=== PATIENT | male | born 1940 | race Caucasian/White ===

== ENCOUNTER → 2019-02-07 | Outpatient (CLI) | payer OTHER ==
[~2019-02-07] MED LIST: ASPI325 PO; Norco 5-325 Ta1 EACH PO
[2019-02-07 17:29] LABS: BASOPHILS ABSOLUTE AUTO 0.04 K/mm3 (0.00-0.23); BASOPHILS PERCENT AUTO 1 % (0-2); EOSINOPHILS ABSOLUTE AUTO 0.28 K/mm3 (0.00-0.68); EOSINOPHILS PERCENT AUTO 5 % (0-6); Hematocrit 49.9 % (37.0-53.0); Hemoglobin 17.2 g/dL (13.5-17.5); IMMATURE GRAN ABSOLUTE AUTO 0.01 K/mm3 (0.00-0.10); IMMATURE GRAN PERCENT AUTO 0 % (0-1); LYMPHOCYTES ABSOLUTE AUTO 2.33 K/mm3 (0.84-5.20); LYMPHOCYTES PERCENT AUTO 38 % (21-46); MONOCYTES ABSOLUTE AUTO 0.53 K/mm3 (0.16-1.47); MONOCYTES PERCENT AUTO 9 % (4-13); Mean Corpuscular HGB 32.7 pg (26.0-34.0); Mean Corpuscular HGB Conc 34.5 g/dL (31.5-36.5); Mean Corpuscular Volume 95 fL (80-100); Mean Platelet Volume 9.9 fL (9.1-12.4); NEUTROPHILS ABSOLUTE AUTO 2.97 K/mm3 (1.96-9.15); NEUTROPHILS PERCENT AUTO 48 % (41-73); Platelet Count 203 K/mm3 (150-400); RDW Coefficient Variation 12.9 % (11.7-14.2); RDW Standard Deviation 45.1 fL (35.1-46.3); Red Blood Cell Count 5.26 M/mm3 (4.30-5.90); White Blood Cell Count 6.16 K/mm3 (4.00-11.30)
[2019-02-07 17:43] LABS: Alanine Aminotransfer (ALT/SGP 23 U/L (12-78); Albumin, Blood 3.8 g/dL (3.4-5.0); Albumin/Globulin Ratio 1.1 (0.8-1.8); Alk Phos 77 U/L (50-136); Anion Gap 4 mmol/L (6-16); Aspartate Aminotrans (AST/SGOT 17 U/L (12-37); Bilirubin, Total 1.1 mg/dL (0.1-1.0); Blood Urea Nitrogen 15 mg/dL (8-24); Bun/Creatinine Ratio 13.3 (12.0-20.0); CHOL/HDL RATIO 3.7; CO2, Blood 29 mmol/L (21-32); Calcium, Blood 8.8 mg/dL (8.5-10.1); Chloride, Blood 108 mmol/L (98-108); Cholesterol 179 mg/dL (50-200); Creatinine, Blood 1.13 mg/dL (0.60-1.20); Globulin, Blood 3.6 g/dL (2.2-4.0); Glomerular Filtration Rate >60 (60-); Glucose, Blood 91 mg/dL (70-99); HDL Cholesterol 48 mg/dL (>39); LDL/HDL RATIO 2.2; Low Density Lipoprotein Chol 106 mg/dL (0-110); Potassium, Blood 4.3 mmol/L (3.5-5.5); Sodium, Blood 141 mmol/L (136-145); Total Protein, Blood 7.4 g/dL (6.4-8.2); Triglycerides 127 mg/dL (30-160); Very Low Density Lipoprot Chol 25 mg/dL (6-32)
== END | disposition home or self-care (01) ==
LOC: LAB 14:40 → LAB SHORT 14:40
PROVIDERS: Nurse Practitioner Family
DX: R73.03 Prediabetes (principal); I10 Essential (primary) hypertension; E78.2 Mixed hyperlipidemia
CPT/HCPCS: 80053; 80061; 83036; 85025

== ENCOUNTER → 2019-12-22 | Outpatient (CLI) | payer OTHER ==
[2019-12-22 17:40] LABS: BASOPHILS ABSOLUTE AUTO 0.05 K/mm3 (0.00-0.23); BASOPHILS PERCENT AUTO 1 % (0-2); EOSINOPHILS ABSOLUTE AUTO 0.17 K/mm3 (0.00-0.68); EOSINOPHILS PERCENT AUTO 3 % (0-6); Hematocrit 50.9 % (37.0-53.0); Hemoglobin 17.1 g/dL (13.5-17.5); IMMATURE GRAN ABSOLUTE AUTO 0.01 K/mm3 (0.00-0.10); IMMATURE GRAN PERCENT AUTO 0 % (0-1); LYMPHOCYTES ABSOLUTE AUTO 1.74 K/mm3 (0.84-5.20); LYMPHOCYTES PERCENT AUTO 28 % (21-46); MONOCYTES ABSOLUTE AUTO 0.62 K/mm3 (0.16-1.47); MONOCYTES PERCENT AUTO 10 % (4-13); Mean Corpuscular HGB 31.8 pg (26.0-34.0); Mean Corpuscular HGB Conc 33.6 g/dL (31.5-36.5); Mean Corpuscular Volume 95 fL (80-100); Mean Platelet Volume 9.7 fL (9.1-12.4); NEUTROPHILS ABSOLUTE AUTO 3.69 K/mm3 (1.96-9.15); NEUTROPHILS PERCENT AUTO 59 % (41-73); Platelet Count 170 K/mm3 (150-400); RDW Coefficient Variation 12.6 % (11.7-14.2); RDW Standard Deviation 43.4 fL (35.1-46.3); Red Blood Cell Count 5.38 M/mm3 (4.30-5.90); White Blood Cell Count 6.28 K/mm3 (4.00-11.30)
[2019-12-22 20:43] LABS: Alanine Aminotransfer (ALT/SGP 26 U/L (12-78); Albumin, Blood 3.4 g/dL (3.4-5.0); Albumin/Globulin Ratio 0.9 (0.8-1.8); Alk Phos 80 U/L (50-136); Anion Gap 7 mmol/L (6-16); Aspartate Aminotrans (AST/SGOT 21 U/L (12-37); Bilirubin, Total 1.7 mg/dL (0.1-1.0); Blood Urea Nitrogen 11 mg/dL (8-24); Bun/Creatinine Ratio 10.1 (12.0-20.0); CHOL/HDL RATIO 4.2; CO2, Blood 27 mmol/L (21-32); Calcium, Blood 8.9 mg/dL (8.5-10.1); Chloride, Blood 106 mmol/L (98-108); Cholesterol 171 mg/dL (50-200); Creatinine, Blood 1.09 mg/dL (0.60-1.20); Globulin, Blood 3.8 g/dL (2.2-4.0); Glomerular Filtration Rate >60 (60-); Glucose, Blood 125 mg/dL (70-99); HDL Cholesterol 41 mg/dL (>39); LDL/HDL RATIO 2.7; Low Density Lipoprotein Chol 112 mg/dL (0-110); Sodium, Blood 140 mmol/L (136-145); Total Protein, Blood 7.2 g/dL (6.4-8.2); Triglycerides 91 mg/dL (30-160); Very Low Density Lipoprot Chol 18 mg/dL (6-32)
== END | disposition home or self-care (01) ==
LOC: LAB SHORT 16:15 → LAB 16:15
PROVIDERS: Nurse Practitioner Family
DX: Z11.59 Encounter for screening for other viral diseases (principal); E78.5 Hyperlipidemia, unspecified
CPT/HCPCS: 80053; 80061; 85025; 86803

== ENCOUNTER → 2021-01-24 | Outpatient (CLI) | payer OTHER ==
[2021-01-24 18:21] LABS: BASOPHILS ABSOLUTE AUTO 0.06 K/mm3 (0.00-0.23); BASOPHILS PERCENT AUTO 1 % (0-2); EOSINOPHILS ABSOLUTE AUTO 0.25 K/mm3 (0.00-0.68); EOSINOPHILS PERCENT AUTO 4 % (0-6); Hematocrit 49.8 % (37.0-53.0); Hemoglobin 17.1 g/dL (13.5-17.5); IMMATURE GRAN ABSOLUTE AUTO 0.01 K/mm3 (0.00-0.10); IMMATURE GRAN PERCENT AUTO 0 % (0-1); LYMPHOCYTES ABSOLUTE AUTO 2.74 K/mm3 (0.84-5.20); LYMPHOCYTES PERCENT AUTO 39 % (21-46); MONOCYTES ABSOLUTE AUTO 0.64 K/mm3 (0.16-1.47); MONOCYTES PERCENT AUTO 9 % (4-13); Mean Corpuscular HGB 32.8 pg (26.0-34.0); Mean Corpuscular HGB Conc 34.3 g/dL (31.5-36.5); Mean Corpuscular Volume 95 fL (80-100); Mean Platelet Volume 9.7 fL (9.1-12.4); NEUTROPHILS ABSOLUTE AUTO 3.38 K/mm3 (1.96-9.15); NEUTROPHILS PERCENT AUTO 48 % (41-73); Platelet Count 178 K/mm3 (150-400); RDW Coefficient Variation 12.4 % (11.7-14.2); RDW Standard Deviation 43.8 fL (35.1-46.3); Red Blood Cell Count 5.22 M/mm3 (4.30-5.90); White Blood Cell Count 7.08 K/mm3 (4.00-11.30)
[2021-01-24 22:05] LABS: Alanine Aminotransfer (ALT/SGP 24 U/L (12-78); Albumin, Blood 3.7 g/dL (3.4-5.0); Albumin/Globulin Ratio 1.1 (0.8-1.8); Alk Phos 74 U/L (50-136); Anion Gap 6 mmol/L (6-16); Aspartate Aminotrans (AST/SGOT 14 U/L (12-37); Bilirubin, Total 1.6 mg/dL (0.1-1.0); Blood Urea Nitrogen 9 mg/dL (8-24); Bun/Creatinine Ratio 8.4 (12.0-20.0); CO2, Blood 28 mmol/L (21-32); Calcium, Blood 8.7 mg/dL (8.5-10.1); Chloride, Blood 106 mmol/L (98-108); Cholesterol 171 mg/dL (50-200); Creatinine, Blood 1.07 mg/dL (0.60-1.20); Globulin, Blood 3.5 g/dL (2.2-4.0); Glomerular Filtration Rate >60 (60-); Glucose, Blood 92 mg/dL (70-99); HDL Cholesterol 43 mg/dL (>39); LDL/HDL RATIO 2.6; Low Density Lipoprotein Chol 112 mg/dL (0-110); Potassium, Blood 3.9 mmol/L (3.5-5.5); Prostate Specific Antigen 0.374 ng/mL (0.000-4.000); Sodium, Blood 140 mmol/L (136-145); Total Protein, Blood 7.2 g/dL (6.4-8.2); Triglycerides 80 mg/dL (30-160); Very Low Density Lipoprot Chol 16 mg/dL (6-32)
== END | disposition home or self-care (01) ==
LOC: LAB 16:29 → LAB SHORT 16:29
PROVIDERS: Nurse Practitioner Family
DX: Z00.00 Encounter for general adult medical examination without abnormal findings (principal); Z12.5 Encounter for screening for malignant neoplasm of prostate; E78.5 Hyperlipidemia, unspecified; I10 Essential (primary) hypertension; E55.9 Vitamin D deficiency, unspecified
CPT/HCPCS: 80053; 80061; 82306; 84443; 85025; G0103

== ENCOUNTER 2022-11-10 03:51 | Inpatient (IN) | payer OTHER ==
[~2022-11-10] VITALS: Ht 172.7 cm; Wt 90.8 kg
[2022-11-10 04:07] LABS: BASOPHILS ABSOLUTE AUTO 0.04 K/mm3 (0.00-0.23); BASOPHILS PERCENT AUTO 0 % (0-2); EOSINOPHILS PERCENT AUTO 0 % (0-6); Hematocrit 49.7 % (37.0-53.0); Hemoglobin 17.5 g/dL (13.5-17.5); IMMATURE GRAN ABSOLUTE AUTO 0.05 K/mm3 (0.00-0.10); IMMATURE GRAN PERCENT AUTO 0 % (0-1); LYMPHOCYTES PERCENT AUTO 10 % (21-46); MONOCYTES ABSOLUTE AUTO 0.92 K/mm3 (0.16-1.47); MONOCYTES PERCENT AUTO 8 % (4-13); Mean Corpuscular HGB Conc 35.2 g/dL (31.5-36.5); Mean Corpuscular Volume 94 fL (80-100); Mean Platelet Volume 9.5 fL (9.1-12.4); NEUTROPHILS ABSOLUTE AUTO 9.46 K/mm3 (1.96-9.15); NEUTROPHILS PERCENT AUTO 81 % (41-73); Platelet Count 179 K/mm3 (150-400); RDW Coefficient Variation 12.8 % (11.7-14.2); RDW Standard Deviation 43.9 fL (35.1-46.3); Red Blood Cell Count 5.31 M/mm3 (4.30-5.90); White Blood Cell Count 11.67 K/mm3 (4.00-11.30)
[2022-11-10 04:18] LABS: Source, Urine Foley catheter
[2022-11-10 04:23] LABS: Bilirubin, Urine Neg (Neg); Blood, Urine 2+ (Neg); Glucose Qualitative, Urine Neg (Neg); Ketones, Urine Neg (Neg); Leukocyte Esterase, Urine Neg (Neg); Nitrite, Urine Neg (Neg); Protein, Urine 2+ (Neg); Specific Gravity, Urine 1.015 (1.003-1.022); Urobilinogen, Urine 2+ (Normal)
[2022-11-10 04:28] LABS: Alanine Aminotransfer (ALT/SGP 22 U/L (12-78); Albumin, Blood 3.8 g/dL (3.4-5.0); Alk Phos 77 U/L (50-136); Anion Gap 3 mmol/L (6-16); Aspartate Aminotrans (AST/SGOT 26 U/L (12-37); Blood Urea Nitrogen 18 mg/dL (8-24); Bun/Creatinine Ratio 15.5 (12.0-20.0); CO2, Blood 25 mmol/L (21-32); CPK Creatine Kinase 311 U/L (39-308); Calcium, Blood 9.2 mg/dL (8.5-10.1); Chloride, Blood 107 mmol/L (98-108); Creatinine, Blood 1.16 mg/dL (0.60-1.20); Globulin, Blood 3.7 g/dL (2.2-4.0); Glomerular Filtration Rate 63 (60-); Glucose, Blood 117 mg/dL (70-99); Potassium, Blood 4.1 mmol/L (3.5-5.5); Sodium, Blood 135 mmol/L (136-145); Total Protein, Blood 7.5 g/dL (6.4-8.2)
[2022-11-10 04:40] LABS: Appearance, Urine Clear (Clear); Color, Urine Yellow (P-Yellow)
[2022-11-10 04:42] LABS: Bacteria Few /hpf; Squamous Epithelial Cells Few /hpf (Few); White Blood Cells, Urine 0-2 /hpf (0-5)
[2022-11-10 05:01] LABS: Creatine Kinase MB 2.2 ng/mL (0.0-3.6); Creatine Kinase MB Index 0.7 (0.0-4.0); Ethanol (Alcohol), Blood, Med <3 mg/dL
[2022-11-10 05:33] LABS: U Amphetamine Screen Not Detected; U Barbituate Screen Not Detected; U Benzodiazapine Screen Not Detected; U Buprenorphine Screen Not Detected; U Cannabinoids Screen Not Detected; U Cocaine Screen Not Detected; U Methadone Screen Not Detected; U Methamphetamine Screen Not Detected; U Opiates Screen Not Detected; U Oxycodone Screen Not Detected; U Phencyclidine Screen Not Detected; U Propoxyphene Screen Not Detected
[2022-11-10 06:24] LABS: Base Excess Venous -1.7 mmol/L; Bicarbonate Venous 22.8 mmol/L (24.0-30.0); PCO2 Venous 43.6 mmHg (38-42); pH Blood Venous 7.35 (7.34-7.37)
[2022-11-10 08:56] VITALS: BP 162/103
--- NOTE | 2022-11-10 11:21 | NUR ---
NOTE: SPOKE WITH PROVIDER, DR. MOON, ABOUT PT'S BP. STATED HE WOULD REVIEW THE VITALS AND WOULD PUT IN ORDERS IF NECESSARY. WILL PASS ON TO TRANSFER NURSE.
--- NOTE | 2022-11-10 12:19 | NUR ---
TRANSFER NOTE: PT TRANSFERED TO MEDICAL FLOOR 345. REPORT GIVEN TO REKHA TRUJILLO.
[2022-11-10 15:54] VITALS: BP 157/100
--- NOTE | 2022-11-10 17:33 | NUR ---
PT MOSTLY ASLEEP TODAY SINCE TRANSFER FROM FLOOR. HE DID AWAKEN TO STERNAL RUB AND DID TALK FOR COUPLE MOMENTS TO ME. DID GIVE NAME, , AGE, PO BOX #, UNABLE TO TELL ME DATE, PRESIDENT, OR HIS PHYSICAL ADDRESS. PT HAS SING SONGY VOICE, APPEARS TO HEAR MY QUESTIONS AT NORMAL VOLUME. ANSWERS APPROP IF ANSWERS AT ALL. AGAIN, FALLS ASLEEP AGAIN. VSS, IVF RUNNING PER ORDERS. NPO. BED IN LOW POSITION, CALL LITE IN REACH, DENIES PAIN, BED ALARM ON FOR SAFETY, CAMERA FOR IMPULSIVITY
[2022-11-10 20:23] VITALS: BP 162/114
[2022-11-11 02:37] VITALS: BP 168/107
--- NOTE | 2022-11-11 04:06 | NUR ---
SHIFT UNREMARKABLE. PT SOMNOLENT AND HAS SLEPT THROUGH MOST OF SHIFT. EASILY AROUSABLE. AOX2-3 WHEN AWAKE BUT ONLY BRIEFLY STAYS AWAKE. DENIES ANY PAIN/DISCOMFORT OF ANY KIND. NS RUNNING THROUGHOUT SHIFT. LIND IN PLACE AND DRAINING WELL. ZOILA AREA WNL ON ASSESSMENT. BED ALARM IS ON AND PT HAS NOT BEEN IMPULSIVE THROUGHOUT SHIFT. Q6 CBGs HAVE BEEN WNL. PT PLEASANT AND COOPERATIVE WITH CARE. DOES NOT REMEMBER FALLING AT HOME OR WHAT LED TO HIM BEING ADMITTED BUT CAN TELL ME WHAT YEAR IT IS, WHERE HE LIVES, WHO HE IS. BED LOCKED IN LOWEST POSITION. CALL LIGHT LEFT WITHIN REACH.
[2022-11-11 05:28] LABS: BASOPHILS ABSOLUTE AUTO 0.03 K/mm3 (0.00-0.23); BASOPHILS PERCENT AUTO 0 % (0-2); EOSINOPHILS ABSOLUTE AUTO 0.02 K/mm3 (0.00-0.68); EOSINOPHILS PERCENT AUTO 0 % (0-6); Hematocrit 46.6 % (37.0-53.0); Hemoglobin 16.9 g/dL (13.5-17.5); IMMATURE GRAN ABSOLUTE AUTO 0.03 K/mm3 (0.00-0.10); IMMATURE GRAN PERCENT AUTO 0 % (0-1); LYMPHOCYTES ABSOLUTE AUTO 2.66 K/mm3 (0.84-5.20); LYMPHOCYTES PERCENT AUTO 30 % (21-46); MONOCYTES ABSOLUTE AUTO 1.06 K/mm3 (0.16-1.47); MONOCYTES PERCENT AUTO 12 % (4-13); Mean Corpuscular HGB 33.7 pg (26.0-34.0); Mean Corpuscular HGB Conc 36.3 g/dL (31.5-36.5); Mean Corpuscular Volume 93 fL (80-100); Mean Platelet Volume 9.7 fL (9.1-12.4); NEUTROPHILS ABSOLUTE AUTO 5.23 K/mm3 (1.96-9.15); NEUTROPHILS PERCENT AUTO 58 % (41-73); Platelet Count 153 K/mm3 (150-400); RDW Coefficient Variation 12.7 % (11.7-14.2); RDW Standard Deviation 43.1 fL (35.1-46.3); Red Blood Cell Count 5.01 M/mm3 (4.30-5.90); White Blood Cell Count 9.03 K/mm3 (4.00-11.30)
[2022-11-11 05:46] LABS: Albumin, Blood 3.2 g/dL (3.4-5.0); Albumin/Globulin Ratio 0.9 (0.8-1.8); Bilirubin, Total 3.7 mg/dL (0.1-1.0); Bun/Creatinine Ratio 13.2 (12.0-20.0); Calcium, Blood 8.4 mg/dL (8.5-10.1); Creatinine, Blood 0.91 mg/dL (0.60-1.20); Globulin, Blood 3.7 g/dL (2.2-4.0); Magnesium, Blood 1.9 mg/dL (1.6-2.4); Potassium, Blood 4.1 mmol/L (3.5-5.5); Total Protein, Blood 6.9 g/dL (6.4-8.2)
[2022-11-11 07:15] VITALS: BP 160/99
[2022-11-11 15:49] VITALS: BP 146/104
--- NOTE | 2022-11-11 18:00 | NUR ---
SHIFT SUMMARY PT DOZING MOST OF DAY BUT DOES ROUSE TO NAME. SON BILL IN TO SEE PT AND AGREED TO BE PTS NEXT OF KIN AND DECISION MAKER. ATTEMPTED A BEDSIDE SWALLOW EVAL WITH PT COUGHING AND THEN VOMITTED. REMAINS NPO AND MD NOTIFIED OF EPISODE. DRESSING APPLIED TO L HAND LACERATION AFTER STERI STRIPS APPLIED. FAMILY AT BEDSIDE ON AND OFF.
[2022-11-11 21:27] VITALS: BP 170/104
[2022-11-11 21:28] VITALS: BP 186/111
--- NOTE | 2022-11-11 21:55 | NUR ---
NIGHTTIME BLOOD PRESSURE CHECK WAS >180 SBP. ENTERED ORDER FOR TELEMETRY BOX PER PROTOCOL. NOTIFIED WEIGHT LOSS CONSULTANT AND ADMINISTERED PRN LABETALOL VIA IV. WILL CONTINUE TO MONITOR.
[2022-11-11 22:09] VITALS: BP 170/114
[2022-11-12 03:19] VITALS: BP 179/104
--- NOTE | 2022-11-12 03:46 | NUR ---
SHIFT UNREMARKABLE. PT HAS BEEN RESTING COMFORTABLY THROUGHOUT MOST OF SHIFT. NIGHT TIME VITALS SHOWED ELEVATED SBP >180. APPLIED TELEMETRY AN ADMINISTERED IV LABETALOL. SEE RELATED NOTE FOR DETAILS. SBP HAS REMAINED <180 SINCE. SHIFT OTHERWISE NOT NOTEWORTHY. PT REMAINS AOX1-2, DENIES PAIN, COOPERATIVE AND PLEASANT. BED LOCKED IN LOWEST POSITION. BED ALARM ON. CALL LIGHT WITHIN REACH.
[2022-11-12 07:20] VITALS: BP 189/106
[2022-11-12 09:18] VITALS: BP 152/104
[2022-11-12 12:59] VITALS: BP 143/106
[2022-11-12 15:28] VITALS: BP 132/96
--- NOTE | 2022-11-12 17:30 | NUR ---
PT IS A/OX2, PLEASANT AND COOPERATIVE. THE PT IS BED REST AT THIS TIME. PT REPOSITIONED T/O THE DAY. THE PT HAS BEEN CONTINENT. PTS AMS IMPROVED COMPARED TO YESTERDAY PER NURSING STAFF THAT WORKED WITH THE PT YESTERDAY. THE PT HAD EMISIS WITH LUNCH. ZOFRAN WAS GIVEN A CALL WAS MADE TO DR. MOON AND NEW ORDERS WERE GIVEN. THE PTS FAMILY REQUESTED TO BE UPDATED ON THE PTS CONDITION FROM THE DO. , DR. MOON CAME TO THE ROOM AND SPOKE WITH THE FAMILY. CALL LIGHT IN REACH. WILL CONTINUE TO MONITOR AND ASSESS FOR CHANGES
--- NOTE | 2022-11-12 17:45 | NUR ---
A&O x 2. ST eval this am started on Puree and thin liquids. During lunch he had an emesis x 1 with no further, zofran given for nausea. MD stopped meals and started Liquids only. Continues on IV fluids. Family in to visit at bedside results of MRI provided. Did not require Ativan for MRI. Luther continues to improve and conversing more this shift.
[2022-11-12 20:34] VITALS: BP 149/87
--- NOTE | 2022-11-13 03:01 | NUR ---
SHIFT MOSTLY UNREMARKABLE. PT HAS BEEN SLEEPING THROUGH MOST OF SHIFT. Q6 CBGS WNL. BP RUNNING LOWER THAN IT WAS LAST NIGHT, NO NEED FOR PRN LABETALOL. PT HAS BEEN MUCH MORE ORIENTED THAN LAST NIGHT. ABLE TO TELL ME HIS NAME/, WHERE HE IS, WHY HE IS HERE, AND THE MONTH. STILL DOES NOT REMEMBER HIS FALL AT HOME OR ANY EVENTS LEADING UP TO FALL. WAS PULLING AT IV EARLY IN MORNING BUT WAS EASILY REDIRECTED. NS CONTINUES TO RUN AT 50 MLS/HR. PT REMAINS INCONTINENT. CHANGED BRIEF 2X THUS FAR THIS SHIFT. PT HAS NOT REQUESTED ANY PO FLUIDS OR FOOD THUS FAR THIS SHIFT. BED LOCKED IN LOWEST POSITION. CALL LIGHT LEFT WITHIN REACH.
[2022-11-13 03:41] VITALS: BP 149/96
[2022-11-13 05:24] LABS: Hematocrit 44.1 % (37.0-53.0); Hemoglobin 16.1 g/dL (13.5-17.5); Mean Corpuscular HGB 33.5 pg (26.0-34.0); Mean Corpuscular HGB Conc 36.5 g/dL (31.5-36.5); Mean Corpuscular Volume 92 fL (80-100); Mean Platelet Volume 9.7 fL (9.1-12.4); Platelet Count 155 K/mm3 (150-400); RDW Coefficient Variation 12.5 % (11.7-14.2); RDW Standard Deviation 41.7 fL (35.1-46.3); White Blood Cell Count 8.77 K/mm3 (4.00-11.30)
[2022-11-13 05:47] LABS: Bun/Creatinine Ratio 19.4 (12.0-20.0); Calcium, Blood 8.5 mg/dL (8.5-10.1); Creatinine, Blood 0.88 mg/dL (0.60-1.20); Potassium, Blood 3.8 mmol/L (3.5-5.5)
[2022-11-13 07:09] VITALS: BP 138/92
[2022-11-13 12:03] LABS: Thyroid Stimulating Hormone 1.94 uIU/mL (0.360-4.800)
[2022-11-13 15:56] LABS: PCO2 Arterial 33.7 mmHg (35-45); PO2 Arterial 71.7 mmHg (80-100); pH Blood Arterial 7.43 (7.35-7.45)
[2022-11-13 16:13] VITALS: BP 122/83
--- NOTE | 2022-11-13 16:30 | NUR ---
SHIFT SUMMARY PATIENT IS ALERT BUT CONFUSED. PATIENT HAS BEEN CONFUSED THIS SHIFT. PATIENT HAS NOT HAD ANY ACUTE EVENTS THIS SHIFT. VITAL SIGNS REVIEWED. PATIENT HAS HAD ABG AND EEG DONE TODAY. PATIENT HAS BEEN CONTINENT THIS SHIFT. PATIENT HAS NOT COMPLAINED OF PAIN, NAUSEA, SOB OR VOMITTING THIS SHIFT. BED IN LOCKED AND LOWEST POSITION. CALL LIGHT IN PLACE. WILL MONITOR UNTIL SHIFT CHANGE.
--- NOTE | 2022-11-13 18:30 | NUR ---
NURSE NOTE LEFT HAND LACERATION APPEARS TO BE MORE SWOLLEN. PATIENT REPORTS TENDERNESS. WILL RELAY THIS TO NOC NURSE FOR POSSIBLE WOUND CARE CONSULT.
[2022-11-13 19:11] VITALS: BP 144/114
--- NOTE | 2022-11-13 21:50 | NUR ---
L Hand infection During assessment I noticed pt had a swollen red left hand. Pt states he cut it on a box 1 week ago. Called hospitalist Dr. Almonte who came and looked, he agreed with my assessment. Dr. Almonte ordered PO antibiotics, first doses tonight.
[2022-11-14 04:59] VITALS: BP 163/97
--- NOTE | 2022-11-14 05:18 | NUR ---
Shift Summary Pt started on PO antibiotics for a probable infection on his L hand per Dr. Almonte's order, see nursing not for more information. C/O pain in L hand and neck/back, medicated per emar. Pt AOx2-3, able to follow commands and make needs known. Slept well t/o most of the night. Incontinent/continent, changed PRN. NS running at 50 mL/hr. VSS, cooperative with care.
[2022-11-14 05:39] LABS: Albumin, Blood 2.8 g/dL (3.4-5.0); Albumin/Globulin Ratio 0.8 (0.8-1.8); Bilirubin, Total 2.5 mg/dL (0.1-1.0); Bun/Creatinine Ratio 18.4 (12.0-20.0); Calcium, Blood 8.5 mg/dL (8.5-10.1); Creatinine, Blood 0.93 mg/dL (0.60-1.20); Globulin, Blood 3.5 g/dL (2.2-4.0); Potassium, Blood 3.6 mmol/L (3.5-5.5); Total Protein, Blood 6.3 g/dL (6.4-8.2)
[2022-11-14 07:11] VITALS: BP 166/93
[2022-11-14 15:25] VITALS: BP 132/80
--- NOTE | 2022-11-14 17:42 | NUR ---
SHIFT SUMMARY: PT A&O X2-3. PT PLEASANT AND COOPERATIVE WITH ALL CARE. PT HAD FREQUENT URINATION THROUGHOUT ENTIRE SHIFT. PT WOULD CALL TO USE URINAL AND EITHER OF ALREADY GONE IN BRIEF OR WILL BARELY GO. PT SON CAME TO VISIT. SON STATED PT DID NOT RECOGNIZE HIM YESTERDAY AND DID TODAY. PT WORKED WITH SPEECH/OT/PT THIS SHIFT. PT UPGRADED TO MECHANICAL SOFT DIET AND MEDS WHOLE WITH WATER. PT ATTEMPTED TO GET OUT OF BED 3 TIMES THIS SHIFT BUT IS EASILY REDIRECTABLE. 4/10 PAIN IN NECK, HEAD, AND L.HAND. L.HAND REMAINS PUFFY. ABX GIVEN. CALL LIGHT IN REACH. BED IN LOWEST POSITION. WILL CONTINUE TO MONITOR.
[2022-11-14 19:46] VITALS: BP 138/93
[2022-11-15 04:00] VITALS: BP 156/93
--- NOTE | 2022-11-15 05:53 | NUR ---
Shift Summary Pt having very frequent urges to urinate, requested help with urinal every 5-15 minutes for much of the shift. Pt's neck and back painful during patient care. AOx2, no attempts to get out of bed. L hand is swollen and tender, he is taking PO ABX for probable L hand infection. Pills whole with water. VSS, cooperative with care.
[2022-11-15 08:22] VITALS: BP 162/97
[2022-11-15 14:50] LABS: Source, Urine Straight Cath
[2022-11-15 14:55] LABS: Appearance, Urine Clear (Clear); Bilirubin, Urine Neg (Neg); Blood, Urine 1+ (Neg); Color, Urine Yellow (P-Yellow); Glucose Qualitative, Urine Neg (Neg); Ketones, Urine 2+ (Neg); Leukocyte Esterase, Urine Neg (Neg); Nitrite, Urine Neg (Neg); Protein, Urine Neg (Neg); Specific Gravity, Urine 1.015 (1.003-1.022); Urobilinogen, Urine 1+ (Normal)
[2022-11-15 15:19] LABS: Bacteria Not Seen /hpf; Red Blood Cells, Urine 0-2 /hpf (0-2); Squamous Epithelial Cells Not Seen /hpf (Few); White Blood Cells, Urine 0-2 /hpf (0-5)
[2022-11-15 15:36] VITALS: BP 118/73
--- NOTE | 2022-11-15 17:02 | NUR ---
SHIFT SUMMARY: PT A&O TO SELF AND FAMILY. PT VERY PLEASANT AND COOPERATIVE WITH CARE. PT SLIGHTLY MORE CONFUSED TODAY THAN YESTERDAY. PT IS NOT FREQUENTLY ASKING FOR URINAL BUT NOW INCONTINENT. STRAIGHT CATH UA DONE ON PT. UA SENT TO LAB. [facility] URINE OUT OF BLADDER. PT HAD FAMILY IN THIS AFTERNOON AND CHEERED PT UP. IV ACYCLOVIR STARTED ON PUT TO BE INCLUDED WITH PO ABX. NEW IV PLACED IN LEFT UPPER ARM. PT TOLERATED IV START WELL. PT WORKED WITH PT. PT UNSTEADY ON FEET. ATTEMPTED PT TO BE UP IN CHAIR. CALL LIGHT IN REACH. BED IN LOWEST POSITION. WILL CONTINUE TO MONITOR.
[2022-11-15 20:03] VITALS: BP 150/82
[2022-11-16 03:34] VITALS: BP 133/92
--- NOTE | 2022-11-16 04:47 | NUR ---
SUMMARY: NO ACUTE EVENTS OVERNIGHT. PATIENT AOX1. VSS. VERY PLEASANTLY CONFUSED. TYLENOL FOR A HEADACHE. LARGE PILLS CRUSHED IN APPLESAUCE. DRANK A LOT OF WATER AND URINATED INCONTINENT IN THE BED 4-5 TIMES LARGE AMOUNTS. COMPLIANT AND COOPERATIVE WITH ALL CARE.
[2022-11-16 07:35] VITALS: BP 139/84
[2022-11-16 16:58] VITALS: BP 152/101
--- NOTE | 2022-11-16 19:51 | NUR ---
SHIFT SUMMARY: PT A&O X3 THIS SHIFT. PT ABLE TO HOLD A CONVERSATION WITH ME. PT RECOGNIZED SELF, FAMILY, AND STATE WHERE HE WAS/WHY HE WAS HERE. PT GOT UP TO CHAIR FOR ALL MEALS. PT ON CAMERA BUT NOT TRYING TO GET OUT OF BED BESIDE PICKING THINGS UP ON GROUND THAT DROPPED. PT ATE MEALS WELL W/SUPERVISION. PT ABLE TO TAKE MEDS WHOLE WITH WATER. PT HAS VIRAL RASH ON ABDOMEN. RECEIVING ACYCLOVIR AND TOLERATING WELL. PT REMAINS INCONTINENT. ONE PERSON ASSIST W/TRANSFERS. CALL LIGHT IN REACH. BED IN LOWEST POSITION. REPORT GIVEN TO ONCOMING NURSE.
[2022-11-16 20:52] VITALS: BP 153/101
[2022-11-17 02:16] VITALS: BP 158/94
[2022-11-17 07:28] VITALS: BP 168/98
--- NOTE | 2022-11-17 07:58 | NUR ---
pt awake a/ox1, pleasant and coopertive with care, follows commands well, denies pain states he's doing ok, lungs are clear, dim in bases, resp even and unlaobred, on r/a, no cough noted, hrr, no edema noted, ppp+2, cap refill <3 sec, vs stable, afebrile, iv to right wrist site is clear and patent, btx4, abd flat soft nontender, incont of urine, briefs in place, skin has rash to abd, and face, maew, weak, assisted to chair for breakfast, call light in reach.
[2022-11-17] MEDS ORDERED: [UNRECOGNIZED DRUG - OTHER] IV (13:00)
[2022-11-17] MEDS ORDERED: AMLO5 PO (13:00)
[2022-11-17 13:28] LABS: SARS-Cov-2 (COVID-19) PCR, MMC Positive (NEGATIVE)
[2022-11-17 17:03] VITALS: BP 143/96
--- NOTE | 2022-11-17 18:32 | NUR ---
pt has been up for meals, no acute changes this shift, tested for covid for placement and is positive, so in isolation, no further changes, call light in reach.
[2022-11-17 19:43] VITALS: BP 128/93
[2022-11-18 02:28] VITALS: BP 118/78
[2022-11-18 07:58] VITALS: BP 123/87
[2022-11-18 15:14] VITALS: BP 146/104
[2022-11-18 15:19] VITALS: BP 146/98
--- NOTE | 2022-11-18 17:34 | NUR ---
SHIFT SUMMARY PT A&OX2 AND IN PLEASENT MOOD T/O SHIFT. HTN NOTED, NOTIFIED MEDS ADJUSTED-OTHER VSS. TOLERATING PO INTAKE WELL. RESTING IN CHAIR T/O SHIFT. CALL LIGHT W/IN REACH.
[2022-11-18 21:07] VITALS: BP 93/71
[2022-11-19 04:40] VITALS: BP 134/96
--- NOTE | 2022-11-19 05:03 | NUR ---
A/OX1-2; SELF AND PLACE. IMPULSIVE/ REDIRECTABLE. DENIES PAIN. 1X ASSIST WITH WALKER TO BATHROOM. ROOM AIR. LUNGS DIMINISHED. ISO PRECAUTIONS MAINTAINED FOR COVID. SOFT BPS (MEDS ADJUSTED ON DAY SHIFT PER REPORT). SLEEP PROMOTED. CALL LIGHT IN REACH; ENCOURAGED TO MAKE NEEDS KNOWN. BED ALARM SET.
[2022-11-19 05:44] LABS: Albumin, Blood 2.7 g/dL (3.4-5.0); Albumin/Globulin Ratio 0.8 (0.8-1.8); Bilirubin, Total 0.9 mg/dL (0.1-1.0); Bun/Creatinine Ratio 16.3 (12.0-20.0); Calcium, Blood 8.1 mg/dL (8.5-10.1); Creatinine, Blood 2.02 mg/dL (0.60-1.20); Free Thyroxine 1.27 ng/dL (0.70-1.60); Globulin, Blood 3.5 g/dL (2.2-4.0); Magnesium, Blood 2.1 mg/dL (1.6-2.4); Potassium, Blood 4.6 mmol/L (3.5-5.5); Total Protein, Blood 6.2 g/dL (6.4-8.2); Triiodothyronine, Free 2.26 pg/mL (2.18-3.98)
[2022-11-19 07:02] LABS: Hemoglobin 14.5 g/dL (13.5-17.5); Mean Corpuscular HGB 33.2 pg (26.0-34.0); Mean Corpuscular HGB Conc 35.4 g/dL (31.5-36.5); Mean Corpuscular Volume 94 fL (80-100); Mean Platelet Volume 9.4 fL (9.1-12.4); Platelet Count 158 K/mm3 (150-400); RDW Coefficient Variation 12.6 % (11.7-14.2); RDW Standard Deviation 43.7 fL (35.1-46.3); Red Blood Cell Count 4.37 M/mm3 (4.30-5.90); White Blood Cell Count 4.49 K/mm3 (4.00-11.30)
[2022-11-19 07:14] VITALS: BP 126/81
[2022-11-19 15:22] VITALS: BP 122/77
[2022-11-19 20:32] VITALS: BP 134/82
[2022-11-20 03:23] VITALS: BP 138/74
[2022-11-20 05:06] LABS: Hematocrit 41.5 % (37.0-53.0); Hemoglobin 14.4 g/dL (13.5-17.5); Mean Corpuscular HGB 32.8 pg (26.0-34.0); Mean Corpuscular HGB Conc 34.7 g/dL (31.5-36.5); Mean Corpuscular Volume 95 fL (80-100); Mean Platelet Volume 9.5 fL (9.1-12.4); Platelet Count 164 K/mm3 (150-400); RDW Coefficient Variation 12.7 % (11.7-14.2); RDW Standard Deviation 44.2 fL (35.1-46.3); Red Blood Cell Count 4.39 M/mm3 (4.30-5.90); White Blood Cell Count 4.38 K/mm3 (4.00-11.30)
[2022-11-20 05:50] LABS: Albumin, Blood 2.8 g/dL (3.4-5.0); Albumin/Globulin Ratio 0.8 (0.8-1.8); Bilirubin, Total 0.9 mg/dL (0.1-1.0); Bun/Creatinine Ratio 17.8 (12.0-20.0); Calcium, Blood 8.3 mg/dL (8.5-10.1); Creatinine, Blood 2.13 mg/dL (0.60-1.20); Globulin, Blood 3.3 g/dL (2.2-4.0); Magnesium, Blood 2.1 mg/dL (1.6-2.4); Potassium, Blood 4.3 mmol/L (3.5-5.5); Total Protein, Blood 6.1 g/dL (6.4-8.2)
--- NOTE | 2022-11-20 05:51 | NUR ---
PATIENT IS PLEASANT, ALERT AND ORIENTED X2, COOPERATIVE WITH CARE, SBA WITH FWW AND BRP. UP FOR MOST OF THE NIGHT HE HAD TO URINATE MANY TIMES. POST VOID RESIDUALS NOTED FROM 120-380. STRAIGHT CATHED POST VOID X1 WITH 500 ML, AND ORDER DC'D [ER PROVIDER REQUEST. TO NOTE, PATIENT IS NOT TAKING FLOMAX OR OTHER BPH MEDICATIONS AND MAY BENEFIT. 1X 1/2 NS COMPLETE AND INFUSING TKO. NO OTHER ISSUES TO REPORT.
[2022-11-20 07:11] VITALS: BP 114/89
--- NOTE | 2022-11-20 12:33 | NUR ---
Initial palliative care consult: Luther is an 82 year old gentleman who was found down by a neighbor and admitted on 11/10/22. He has a history or HTN. He is currently Covid + and will be out of his quarantine on 11/27/22. Luther is sitting in the bedside chair during the visit. He reports that he lives alone in a trailer in [place]. He has a sister that lives in a trailer near him and a sister in [place]. He has a third sister in [place], [place]. He has a brother as well but did not tell this typewriter tester where his brother lives. He has a son Floyd Sanchez" who lives out of the area. Luther reports some right rib tenderness when he moves around which he attributes to his fall. No c/o SOB or other pain. He has some difficulty starting his urinary stream (his bedside nurse is aware of this issue.) He reports a good appetite. He states he is missing his usual 2 pm afternoon snack of ice cream daily. Nursing notified that he would enjoy an afternoon snack of ice cream. Luther is A/O x4. He takes his time to answer some of this questions asked of him. He reports he has no recollection of falling at home. He lives alone. He drives on occasion. He shops for groceries in smaller stores as it is becomming more difficult for him to get around. His meals consist mostly of TV dinners. He reports he does do some cleaning in his trailer. He states that he has a WC at home. He reports that he doesn't currently have a PCP as his PCP left the [place] area. He states that his income is $1700 a month and that he feels he has enough to pay for his needs. Provided information on the Meals of Wheels program for him. Discussed goals of care and plan for discharge to SNF for rehab once the covid isolation is over. He states he doesn't have an AD however he states that he has had conversations with his brother about his DNR status. Reviewed and completed a POLST form with his wishes of DNR and limited interventions. Dr. Aguirre notified and telephone orders received for DNR status. Will process POLST form once signed by . Nursing updated.
--- NOTE | 2022-11-20 14:13 | NUR ---
SHIFT SUMMARY PT AWAKE, SITTING UP IN CHAIR DURING SHIFT REPORT. PT IS IMPULSIVE AT TIMES, FORGETTING TO USE CALL LT TO GO TO BTHRM OR GET BACK INTO BED. SBA USING FWW FOR MOBILITY; PT IS WEAK AND A LITTLE UNSTEADY. BED AND CHAIR ALARMS USED FOR SAFETY. PER REPORT, PT SHOWING SOME URINARY RETENSION; SEE CHART. DR LAIRD NOTIFIED; FLOMAX ORDERED AND GIVEN. PT ABLE TO WORK WITH THERAPY TODAY. PALLIATIVE CARE RN IN TO TALK WITH PT AND ASSESS NEEDS. CODE STATUS CHANGED TO DNR. DENIED FURTHER NEEDS AT THIS TIME. CALL LT IN REACH.
[2022-11-20 15:19] VITALS: BP 137/95
[2022-11-20 19:29] VITALS: BP 133/86
[2022-11-21 03:24] VITALS: BP 137/85
--- NOTE | 2022-11-21 04:35 | NUR ---
Pt sleeping on and off during the night. pt had 2 incont voids lg amounts and 2 voids at 100 x2. pt is calling for assistance when needed.
[2022-11-21 06:09] LABS: Hematocrit 42.6 % (37.0-53.0); Hemoglobin 14.8 g/dL (13.5-17.5); Mean Corpuscular HGB 33.2 pg (26.0-34.0); Mean Corpuscular HGB Conc 34.7 g/dL (31.5-36.5); Mean Corpuscular Volume 96 fL (80-100); Mean Platelet Volume 9.2 fL (9.1-12.4); Platelet Count 148 K/mm3 (150-400); RDW Coefficient Variation 12.9 % (11.7-14.2); RDW Standard Deviation 45.7 fL (35.1-46.3); Red Blood Cell Count 4.46 M/mm3 (4.30-5.90); White Blood Cell Count 3.02 K/mm3 (4.00-11.30)
[2022-11-21 06:27] LABS: Albumin, Blood 2.8 g/dL (3.4-5.0); Albumin/Globulin Ratio 0.8 (0.8-1.8); Bun/Creatinine Ratio 20.8 (12.0-20.0); Calcium, Blood 8.7 mg/dL (8.5-10.1); Creatinine, Blood 1.73 mg/dL (0.60-1.20); Globulin, Blood 3.4 g/dL (2.2-4.0); Potassium, Blood 4.1 mmol/L (3.5-5.5); Total Protein, Blood 6.2 g/dL (6.4-8.2)
[2022-11-21 07:05] VITALS: BP 132/90
[2022-11-21 15:07] VITALS: BP 114/82
--- NOTE | 2022-11-21 19:26 | NUR ---
SHIFT SUMMARY: NO ACUTE EVENTS. ISOLATION FOR COVID, ASYMPTOMAITC. A&O X 1-2, PLEASANT AND COOPERATIVE. C/O OCCIPITAL HEADACHE; RELIEVED WITH TYLENOL. GOOD PO INTAKE. IVF STARTED THIS AFTERNOON. DENIES N/V/D. GETTING UP TO CHAIR WITH 1 PERSON ASSIST. NO VISITORS TODAY.
[2022-11-21 21:16] VITALS: BP 111/77
[2022-11-22 06:12] LABS: Hematocrit 43.8 % (37.0-53.0); Hemoglobin 15.1 g/dL (13.5-17.5); Mean Corpuscular HGB Conc 34.5 g/dL (31.5-36.5); Mean Corpuscular Volume 96 fL (80-100); Mean Platelet Volume 9.2 fL (9.1-12.4); Platelet Count 172 K/mm3 (150-400); RDW Coefficient Variation 12.6 % (11.7-14.2); RDW Standard Deviation 44.9 fL (35.1-46.3); Red Blood Cell Count 4.57 M/mm3 (4.30-5.90); White Blood Cell Count 3.19 K/mm3 (4.00-11.30)
--- NOTE | 2022-11-22 06:29 | NUR ---
SHIFT SUMMERY, PT INCONT AND HAD 2 BED CHAGES. PT COOPERATIVE AND CALM. SLEPT WELL DURING THE NIGHT. CALL LIGHT IN REACH BED ALARM ON.
[2022-11-22 06:56] LABS: Alanine Aminotransfer (ALT/SGP 105 U/L (12-78); Albumin, Blood 2.8 g/dL (3.4-5.0); Albumin/Globulin Ratio 0.8 (0.8-1.8); Alk Phos 105 U/L (50-136); Anion Gap 7 mmol/L (6-16); Aspartate Aminotrans (AST/SGOT 122 U/L (12-37); Blood Urea Nitrogen 33 mg/dL (8-24); Bun/Creatinine Ratio 21.9 (12.0-20.0); CO2, Blood 25 mmol/L (21-32); Calcium, Blood 8.5 mg/dL (8.5-10.1); Chloride, Blood 105 mmol/L (98-108); Creatinine, Blood 1.51 mg/dL (0.60-1.20); Globulin, Blood 3.7 g/dL (2.2-4.0); Glomerular Filtration Rate 46 (60-); Glucose, Blood 104 mg/dL (70-99); Potassium, Blood 4.4 mmol/L (3.5-5.5); Prostate Specific Antigen 0.383 ng/mL (0.000-4.000); Sodium, Blood 137 mmol/L (136-145); Total Protein, Blood 6.5 g/dL (6.4-8.2)
[2022-11-22 07:53] VITALS: BP 131/89
[2022-11-22 15:31] VITALS: BP 108/82
--- NOTE | 2022-11-22 17:16 | NUR ---
END OF SHIFT SUMMARY: PATIENT REPORTED SOME MILD ACHES AND PAINS THIS MORNING. MEDICATED PER PRNS. PATIENT UP TO THE CHAIR MULTIPLE TIMES. PATIENT DENIED SHORTNESS OF BREATH OR DIFFICULTY BREATHING. NO DISTRESS NOTED. PATIENT STABLE ON RA. NO COUGH NOTED DURING THE DAY. PATIENT CONTINUES TO BE CONTINENT/INCONTINENT. PATIENT IS ALERT AND ORIENTED X4. PATIENT IS CALM AND PLEASANT WITH STAFF. PATIENT TOLERATING ASPIRATION PRECAUTIONS WELL.
[2022-11-22 20:09] VITALS: BP 130/83
--- NOTE | 2022-11-22 21:35 | NUR ---
pts drg to left hand changed, no redness swelling or drainage to wound. pt tolerated drg change well.
[2022-11-23 02:10] VITALS: BP 131/85
--- NOTE | 2022-11-23 04:47 | NUR ---
SHIFT SUMMERY, PT VERY CALM ND COOPERATIVE. PTS DRG TO HAND CHANGED NO REDNESS OR SWELLING. PT SLEEPING WE4LL , CALL LIGHT IN REACH BED ALRM ON.
[2022-11-23 06:32] LABS: Hematocrit 42.7 % (37.0-53.0); Hemoglobin 14.7 g/dL (13.5-17.5); Mean Corpuscular HGB 32.7 pg (26.0-34.0); Mean Corpuscular HGB Conc 34.4 g/dL (31.5-36.5); Mean Corpuscular Volume 95 fL (80-100); Mean Platelet Volume 9.4 fL (9.1-12.4); Platelet Count 188 K/mm3 (150-400); RDW Coefficient Variation 12.7 % (11.7-14.2); RDW Standard Deviation 44.6 fL (35.1-46.3); Red Blood Cell Count 4.49 M/mm3 (4.30-5.90); White Blood Cell Count 3.06 K/mm3 (4.00-11.30)
[2022-11-23 06:58] LABS: Albumin, Blood 2.8 g/dL (3.4-5.0); Albumin/Globulin Ratio 0.8 (0.8-1.8); Bilirubin, Total 1.2 mg/dL (0.1-1.0); Bun/Creatinine Ratio 20.9 (12.0-20.0); Calcium, Blood 8.6 mg/dL (8.5-10.1); Creatinine, Blood 1.34 mg/dL (0.60-1.20); Globulin, Blood 3.6 g/dL (2.2-4.0); Potassium, Blood 4.4 mmol/L (3.5-5.5); Total Protein, Blood 6.4 g/dL (6.4-8.2)
[2022-11-23 07:40] VITALS: BP 128/94
[2022-11-23 16:00] VITALS: BP 127/90
--- NOTE | 2022-11-23 16:35 | NUR ---
SHIFT SUMMARY: Pt alert and oriented this shift. MOAPA. Denies pain. Stand by ast for ambulation. Remains on room air without distess. Lung sounds clear, diminished. VSS on room air. BM today. Dressing to left hand CDI. No needs id or verbalized. Will continue to monitor.
[2022-11-23 19:25] VITALS: BP 110/91
--- NOTE | 2022-11-24 03:46 | NUR ---
sHIFT SUMMERY, PT WAS IN RECLINER , PT HAD BEEN INCONT AND WAS CHANGED. PT THEN TRANSFED WITH WALKER AND 1 ASSIST TO BED. PT CALL AND ALERT AND COOPERATIVE. PT RESTING MOST OF THE NIGHT OCCASIONALY MOANING BUT APPEARING TO BE ASLEEP. CALL LIGHT IN REACH BED ALARM ON.
[2022-11-24 07:25] VITALS: BP 135/94
[2022-11-24 15:27] VITALS: BP 135/95
--- NOTE | 2022-11-24 17:41 | NUR ---
SHIFT SUMMARY- NO ACUTE CHANGES. PT CONFUSED, SLOW TO RESPOND BASIC NEEDS. PLEASANT AND COORPERATIVE. INCONTENT. ON RA. IV INTACT AND PATENT. L HAND WOUND CHANGED, NO SIGNS OF WEEPING OR OOZING. PAIN NOTED PER FACIAL EXPRESSION DURING PM BATH, MEDICATED PER EMAR. MILD COUGH, CLEAR SPUTUM. LUNGS CLEAR, DIMISHED AT BASE. WILL CONTINUE TO MONITOR. CALL LIGHT IN REACH. BED/CHAIR ALARM IN REACH.
[2022-11-25 00:10] LABS: HBSAG SCREEN Negative (Negative); HCV AB Non Reactive (Non Reactive); HEP A AB, IGM Negative (Negative); HEP B CORE AB, IGM Positive (Negative)
--- NOTE | 2022-11-25 04:35 | NUR ---
SHIFT SUMMARY 82 YR M ADMITTED ON 11/10/22 FOR ACUTE METABOLIC ENCEPHALOPATHY. DNR. NO ACUTE CHANGES OVERNIGHT. PT IS CONFUSED AND DOES NOT USE THE CALL LIGHT WHEN HE NEEDS TO GET UP TO GO TO THE BATHROOM. BED ALARM IS ON AND ALERTS STAFF WHEN HE GETS UP. THE LAST TIME HE USED THE BATHROOM HE MISSED THE TOILET AND URINATED ALL OVER THE FLOOR. HE IS VERY PLEASANT BUT CONFUSED AND UNABLE TO FOLLOW SIMPLE DIRECTIONS.
[2022-11-25 09:02] VITALS: BP 117/88
[2022-11-25 16:14] VITALS: BP 110/80
--- NOTE | 2022-11-25 17:16 | NUR ---
SHIFT SUMMARY- VSS. PT CONSTIPATED. SMALL SCANTY BOWEL MOVEMENT THROUGHOUT DAY. PT RESTFUL, NAPPING THROUGHOUT DAY. ON RA. PLEASANT. A@O X1. BANDAGE CHANGED ON R HAND WOUND, NO ACUTE CHANGES. WILL CONTINUE TO MONITOR. CALL LIGHT IN REACH. BED/CHAIR ALARM ON.
[2022-11-25 19:33] VITALS: BP 131/91
[2022-11-26 02:42] VITALS: BP 120/76
--- NOTE | 2022-11-26 05:58 | NUR ---
SUMMARY: PT A/O TO SELF AND SURROUNDINGS AND IS ABLE TO SPECIFY NEEDS. HE'S UP W/1PA AND FWW W/BED ALARM ON FOR FALL RISK AND OCC IMPULSIVITY. PT WASN'T OOB AND USES URINAL W/ASSIST AT TIMES BUT WAS MOSTLY INCONTINENT TONIGHT, ATTENDS AND LINEN CHANGED PRN. DX TO L.FINGER LACERATION REMAINS C/D/I. HE'S IN ENHANCED ISOLATION FOR COVID PENDING D/C TO [facility] 11/27/22. NO ACUTE CHANGES, VSS/AFEBRILE. WCTM AND REPORT TO DAY RN.
[2022-11-26 07:22] VITALS: BP 113/90
[2022-11-26 16:10] VITALS: BP 116/83
--- NOTE | 2022-11-26 18:14 | NUR ---
SUMMARY- PT A/O X3, UP TO BATHROOM WITH SBA/WALKER. NEEDS REMINDERS TO ASK FOR ASSISTANCE. TOLERATING GOOD AMOUNTS OF FLUIDS. ABOUT 25% OF PUREE DIET. CONSTIPATED, GIVEN MULT LAX. RN ASSIST WITH OIL ENEMA TO HAVE HARD IMPACTION BROKEN UP, HAD APPROX 25 GRAPESIZE PELLETS, FEELS BETTER. DRESSING TO L HAND CHANGED AT 1630. PLAN FOR PT TO GO TO [place] [id number] 11/27.
[2022-11-26 19:56] VITALS: BP 130/80
--- NOTE | 2022-11-27 04:15 | NUR ---
SHIFT SUMMARY ADMITTED FOR ACUTE ENCEPHALOPATHY/KOBI. DNR CODE. PLAN IS FOR DC TO [facility] TODAY. PT IS FORGETFUL, BUT ABLE TO MAKE HIS NEEDS KNOWN. HE IS PLEASANT AND COOPERATIVE WITH CARE. CONTINENT/INCONTINENT. LACERATION ON LEFT HAND. 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 WAS LIVING ALONE INDEPENDENTLY PREVIOUS TO ADMIT.
[2022-11-27 04:35] VITALS: BP 125/84
[2022-11-27 07:42] VITALS: BP 133/121
--- NOTE | 2022-11-27 08:50 | NUR ---
PT DC'D TO [facility] HERE TO TAKE PT VIA WHEELCHAIR. PT HAD AM MEDS AND ATE BREAKFAST. MULT LAXATIVES SINCE YESTERDAY TO AID IN BOWEL MOVEMENT, PT WAS IMPACTED WITH HARD STOOL. RN BROKE STOOL UP AND PT HAD MULT HARD LUIS A AND STOOL STARTING PM 5/4. GAVE MORE SENNNAKOT THIS AM IN HOPES STOOL CONT TO COME. REPORTED STOOL STATUS AND PT'S HOSP HISTORY AND CURRENT STANDING TO RN AT R. SENT ALL BELONGINGS WITH PT, INCLUDING DYSPHAGIA SHEET AND REPORTED PUREE/THIN LIQ DIET STATUS. PT LEFT AT 0835
== END 2022-11-27 08:37 | DRG 70 ==
LOC: ER 03:51 → MEDS 06:07
PROVIDERS: Emergency Medicine; Internal Medicine; ADMIT Student in an Organized Health Care Education/Training Program
PROC: 05HY33Z Insertion of Infusion Device into Upper Vein, Percutaneous Approach (ICD-10-PCS; principal; 2022-11-10)
PROC: 0T9B70Z Drainage of Bladder with Drainage Device, Via Natural or Artificial Opening (ICD-10-PCS; 2022-11-10)
PROC: 4A033R1 Measurement of Arterial Saturation, Peripheral, Percutaneous Approach (ICD-10-PCS; 2022-11-13)
PROC: 4A00X4Z Measurement of Central Nervous Electrical Activity, External Approach (ICD-10-PCS; 2022-11-18)
DX: G93.40 Encephalopathy, unspecified (principal); U07.1 COVID-19; E87.1 Hypo-osmolality and hyponatremia; N17.9 Acute kidney failure, unspecified; L03.114 Cellulitis of left upper limb; I10 Essential (primary) hypertension; R79.89 Other specified abnormal findings of blood chemistry; S61.412D Laceration without foreign body of left hand, subsequent encounter; S20.319D Abrasion of unspecified front wall of thorax, subsequent encounter; Z96.653 Presence of artificial knee joint, bilateral; Z96.611 Presence of right artificial shoulder joint; Z79.82 Long term (current) use of aspirin; Z87.81 Personal history of (healed) traumatic fracture; Z87.448 Personal history of other diseases of urinary system; Z89.011 Acquired absence of right thumb; W26.8XXD Contact with other sharp object(s), not elsewhere classified, subsequent encounter
CPT/HCPCS: 36415; 36600; 51701; 51702; 70450; 70551; 71045; 76770; 80048; 80053; 80074; 81001; 82140; 82375; 82550; 82553; 82607; 82746; 82803; 82947; 83735; 84153; 84439; 84443; 84481; 84484; 85025; 85027; 85651; 86140; 92526; 92610; 93005; 93010; 95819; 96360-59; 97110; 97112; 97116; 97162; 97530; 99285-25; A9270; G0480; J0133; J1644; J1650; J2405; J3411; J3420; J7030; J7060; U0004

== ENCOUNTER 2024-01-10 04:59 | Emergency (ER) | payer OTHER ==
[~2024-01-10] VITALS: Ht 180.3 cm; Wt 83.9 kg
[~2024-01-10 04:59] MED LIST changes: +AMLO5 PO; +[UNRECOGNIZED DRUG - OTHER] IV
[2024-01-10 05:17] LABS: BASOPHILS ABSOLUTE AUTO 0.04 K/mm3 (0.00-0.23); BASOPHILS PERCENT AUTO 1 % (0-2); EOSINOPHILS ABSOLUTE AUTO 0.06 K/mm3 (0.00-0.68); EOSINOPHILS PERCENT AUTO 1 % (0-6); Hematocrit 46.5 % (37.0-53.0); Hemoglobin 16.1 g/dL (13.5-17.5); IMMATURE GRAN ABSOLUTE AUTO 0.03 K/mm3 (0.00-0.10); IMMATURE GRAN PERCENT AUTO 0 % (0-1); LYMPHOCYTES ABSOLUTE AUTO 2.01 K/mm3 (0.84-5.20); LYMPHOCYTES PERCENT AUTO 23 % (21-46); MONOCYTES ABSOLUTE AUTO 0.86 K/mm3 (0.16-1.47); MONOCYTES PERCENT AUTO 10 % (4-13); Mean Corpuscular HGB 33.6 pg (26.0-34.0); Mean Corpuscular HGB Conc 34.6 g/dL (31.5-36.5); Mean Corpuscular Volume 97 fL (80-100); Mean Platelet Volume 9.4 fL (9.1-12.4); NEUTROPHILS ABSOLUTE AUTO 5.87 K/mm3 (1.96-9.15); NEUTROPHILS PERCENT AUTO 66 % (41-73); Platelet Count 149 K/mm3 (150-400); RDW Coefficient Variation 12.9 % (11.7-14.2); RDW Standard Deviation 46.2 fL (35.1-46.3); Red Blood Cell Count 4.79 M/mm3 (4.30-5.90); White Blood Cell Count 8.87 K/mm3 (4.00-11.30)
[2024-01-10 05:47] LABS: Albumin, Blood 3.2 g/dL (3.4-5.0); Albumin/Globulin Ratio 0.8 (0.8-1.8); Bilirubin, Total 2.5 mg/dL (0.1-1.0); Bun/Creatinine Ratio 14.7 (12.0-20.0); Calcium, Blood 8.8 mg/dL (8.5-10.1); Creatinine, Blood 1.02 mg/dL (0.60-1.20); Globulin, Blood 3.9 g/dL (2.2-4.0); Total Protein, Blood 7.1 g/dL (6.4-8.2)
[2024-01-10 09:07] VITALS: BP 142/93
[2024-01-10] MEDS ORDERED: AZIT250 PO (09:18)
== END 2024-01-10 10:12 | disposition home or self-care (01) ==
LOC: ER 04:59
PROVIDERS: Emergency Medicine
DX: R07.89 Other chest pain (principal); F17.220 Nicotine dependence, chewing tobacco, uncomplicated; Z79.82 Long term (current) use of aspirin
CPT/HCPCS: 71250; 80053; 84484; 85025; 93005; 93010; 99285-25

== ENCOUNTER 2024-09-13 15:28 | Emergency (ER) | payer OTHER ==
[~2024-09-13] VITALS: Ht 180.3 cm; Wt 81.7 kg
[~2024-09-13 15:28] MED LIST changes: +AZIT250 PO
[2024-09-13 15:55] LABS: BASOPHILS ABSOLUTE AUTO 0.06 K/mm3 (0.00-0.23); BASOPHILS PERCENT AUTO 1 % (0-2); EOSINOPHILS ABSOLUTE AUTO 0.18 K/mm3 (0.00-0.68); EOSINOPHILS PERCENT AUTO 2 % (0-6); Hematocrit 43.4 % (37.0-53.0); Hemoglobin 14.9 g/dL (13.5-17.5); IMMATURE GRAN ABSOLUTE AUTO 0.02 K/mm3 (0.00-0.10); IMMATURE GRAN PERCENT AUTO 0 % (0-1); LYMPHOCYTES ABSOLUTE AUTO 2.29 K/mm3 (0.84-5.20); LYMPHOCYTES PERCENT AUTO 31 % (21-46); MONOCYTES ABSOLUTE AUTO 0.77 K/mm3 (0.16-1.47); MONOCYTES PERCENT AUTO 10 % (4-13); Mean Corpuscular HGB 33.1 pg (26.0-34.0); Mean Corpuscular HGB Conc 34.3 g/dL (31.5-36.5); Mean Corpuscular Volume 96 fL (80-100); Mean Platelet Volume 9.4 fL (9.1-12.4); NEUTROPHILS ABSOLUTE AUTO 4.15 K/mm3 (1.96-9.15); NEUTROPHILS PERCENT AUTO 56 % (41-73); Platelet Count 173 K/mm3 (150-400); RDW Coefficient Variation 12.9 % (11.7-14.2); RDW Standard Deviation 46.2 fL (35.1-46.3); White Blood Cell Count 7.47 K/mm3 (4.00-11.30)
[2024-09-13 16:26] LABS: Albumin, Blood 3.2 g/dL (3.4-5.0); Albumin/Globulin Ratio 0.8 (0.8-1.8); Bilirubin, Total 0.9 mg/dL (0.1-1.0); Bun/Creatinine Ratio 12.7 (12.0-20.0); Calcium, Blood 9.1 mg/dL (8.5-10.1); Creatinine, Blood 1.18 mg/dL (0.60-1.20); Globulin, Blood 3.9 g/dL (2.2-4.0); Potassium, Blood 4.1 mmol/L (3.5-5.5); Total Protein, Blood 7.1 g/dL (6.4-8.2)
[2024-09-13] MEDS ORDERED: Lasix20 MG PO (16:49)
[2024-09-13] MEDS ORDERED: CEPH500 PO (16:49)
[2024-09-13] MEDS ORDERED: Cephalexin Monohydrate 500 MG Cap PO ONE (17:20)
[2024-09-13] MEDS ORDERED: Furosemide 20 MG Tab PO ONE (17:20)
[2024-09-13 18:25] VITALS: BP 150/96
== END 2024-09-13 18:20 | disposition home or self-care (01) ==
LOC: ER 15:28
PROVIDERS: Emergency Medicine
DX: L03.115 Cellulitis of right lower limb (principal); L03.116 Cellulitis of left lower limb; F17.210 Nicotine dependence, cigarettes, uncomplicated; Z79.82 Long term (current) use of aspirin; Z79.899 Other long term (current) drug therapy
CPT/HCPCS: 80053; 85025; 99283; A9270

== ENCOUNTER 2024-10-08 17:47 | Inpatient (IN) | payer OTHER ==
[~2024-10-08] VITALS: Ht 180.3 cm; Wt 101.1 kg
[~2024-10-08 17:47] MED LIST changes: +CEPH500 PO; +Lasix20 MG PO
[2024-10-08 18:05] LABS: BASOPHILS ABSOLUTE AUTO 0.02 K/mm3 (0.00-0.23); BASOPHILS PERCENT AUTO 0 % (0-2); EOSINOPHILS ABSOLUTE AUTO 0.01 K/mm3 (0.00-0.68); EOSINOPHILS PERCENT AUTO 0 % (0-6); Hematocrit 43.7 % (37.0-53.0); IMMATURE GRAN ABSOLUTE AUTO 0.05 K/mm3 (0.00-0.10); IMMATURE GRAN PERCENT AUTO 0 % (0-1); LYMPHOCYTES ABSOLUTE AUTO 0.97 K/mm3 (0.84-5.20); LYMPHOCYTES PERCENT AUTO 7 % (21-46); MONOCYTES ABSOLUTE AUTO 0.98 K/mm3 (0.16-1.47); MONOCYTES PERCENT AUTO 7 % (4-13); Mean Corpuscular HGB 32.8 pg (26.0-34.0); Mean Corpuscular HGB Conc 34.3 g/dL (31.5-36.5); Mean Corpuscular Volume 95 fL (80-100); Mean Platelet Volume 9.5 fL (9.1-12.4); NEUTROPHILS ABSOLUTE AUTO 12.41 K/mm3 (1.96-9.15); NEUTROPHILS PERCENT AUTO 86 % (41-73); Platelet Count 137 K/mm3 (150-400); RDW Coefficient Variation 13.2 % (11.7-14.2); RDW Standard Deviation 46.4 fL (35.1-46.3); Red Blood Cell Count 4.58 M/mm3 (4.30-5.90); White Blood Cell Count 14.44 K/mm3 (4.00-11.30)
[2024-10-08 18:36] LABS: Albumin, Blood 3.3 g/dL (3.4-5.0); Albumin/Globulin Ratio 0.9 (0.8-1.8); Bilirubin, Total 1.2 mg/dL (0.1-1.0); Bun/Creatinine Ratio 15.2 (12.0-20.0); Calcium, Blood 8.6 mg/dL (8.5-10.1); Creatinine, Blood 1.12 mg/dL (0.60-1.20); Globulin, Blood 3.8 g/dL (2.2-4.0); Potassium, Blood 4.7 mmol/L (3.5-5.5); Total Protein, Blood 7.1 g/dL (6.4-8.2)
[2024-10-08] MEDS ORDERED: Clindamycin 600mg in D5W 50 ML IV ONE (18:55)
[2024-10-08 19:40] LABS: Source, Urine Clean Catch
[2024-10-08] MEDS ORDERED: FLU VACC TS2024-25(6MOS UP)/PF 45 MCG/0.5 ML SYRINGE IM ONE (19:40)
[2024-10-08] MEDS ORDERED: Magnesium Hydroxide Conc 10 ML UDC PO PRN (19:40)
[2024-10-08 19:45] LABS: Bilirubin, Urine Neg (Neg); Blood, Urine 1+ (Neg); Color, Urine Yellow (P-Yellow); Glucose Qualitative, Urine Neg (Neg); Ketones, Urine Neg (Neg); Leukocyte Esterase, Urine Neg (Neg); Nitrite, Urine Neg (Neg); Protein, Urine Neg (Neg); Specific Gravity, Urine 1.005 (1.003-1.022); Urobilinogen, Urine 3+ (Normal)
[2024-10-08 20:11] LABS: Appearance, Urine Hazy (Clear)
[2024-10-08 20:12] LABS: Bacteria Few /hpf; Squamous Epithelial Cells Rare /hpf (Few); Transitional Epithelial Cells Rare /hpf (0-Rare); White Blood Cells, Urine 0-2 /hpf (0-5)
[2024-10-08] MEDS ORDERED: Lactobacil 2-S.Thermo-Bifido 1 1 Cap PO SCH (21:00)
[2024-10-08 21:21] VITALS: BP 139/92
[2024-10-09 03:52] VITALS: BP 145/96
[2024-10-09] MEDS ORDERED: Clindamycin 900mg in D5W 50ML 50 ML IV SCH (04:00)
[2024-10-09 06:20] LABS: BASOPHILS ABSOLUTE AUTO 0.06 K/mm3 (0.00-0.23); BASOPHILS PERCENT AUTO 1 % (0-2); EOSINOPHILS PERCENT AUTO 1 % (0-6); Hematocrit 38.8 % (37.0-53.0); Hemoglobin 13.4 g/dL (13.5-17.5); IMMATURE GRAN ABSOLUTE AUTO 0.08 K/mm3 (0.00-0.10); IMMATURE GRAN PERCENT AUTO 1 % (0-1); LYMPHOCYTES PERCENT AUTO 21 % (21-46); MONOCYTES ABSOLUTE AUTO 0.91 K/mm3 (0.16-1.47); MONOCYTES PERCENT AUTO 9 % (4-13); Mean Corpuscular HGB Conc 34.5 g/dL (31.5-36.5); Mean Corpuscular Volume 96 fL (80-100); NEUTROPHILS ABSOLUTE AUTO 6.96 K/mm3 (1.96-9.15); NEUTROPHILS PERCENT AUTO 68 % (41-73); RDW Coefficient Variation 13.2 % (11.7-14.2); RDW Standard Deviation 46.7 fL (35.1-46.3); Red Blood Cell Count 4.06 M/mm3 (4.30-5.90); White Blood Cell Count 10.31 K/mm3 (4.00-11.30)
[2024-10-09 06:31] LABS: Mean Platelet Volume 10.3 fL (9.1-12.4); Platelet Count 118 K/mm3 (150-400)
[2024-10-09 06:32] LABS: Albumin, Blood 2.7 g/dL (3.4-5.0); Albumin/Globulin Ratio 0.8 (0.8-1.8); Bilirubin, Total 1.4 mg/dL (0.1-1.0); Calcium, Blood 8.3 mg/dL (8.5-10.1); Creatinine, Blood 1.13 mg/dL (0.60-1.20); Globulin, Blood 3.2 g/dL (2.2-4.0); Potassium, Blood 3.7 mmol/L (3.5-5.5); Total Protein, Blood 5.9 g/dL (6.4-8.2)
[2024-10-09 08:19] VITALS: BP 103/85
[2024-10-09] MEDS ORDERED: CeFAZolin Sodium 2,000 MG in NS 100 ML IV SCH (08:56)
[2024-10-09] MEDS ORDERED: Enoxaparin 40 MG/0.4 ML SYR SC SCH (09:00)
--- NOTE | 2024-10-09 09:00 | NUR ---
pt sitting up in chair, a/ox3-4, pleasant and cooperative with care, follows commands well, denies pain, lungs are clear/dim t/o, resp even and unlabored, no cough noted, hrr, 3-4+ edema noted to b/l le, piv to rac, site is clear and patent, btx4, abd flat soft nontender, voids via purwick at this time, briefs are also in place, skin has some scattered scabs and excoration to nikki area, weak, PT worked with him this am and got him up to the chair, brittney, call light in reach.
[2024-10-09] MEDS ORDERED: NS 250 ML IV PRN (09:35)
[2024-10-09 15:40] VITALS: BP 128/82
--- NOTE | 2024-10-09 17:47 | NUR ---
pt in bed at this time, brother in to see him, in good spirits, no complaints or acute changes this shift. call light in reach.
[2024-10-09 19:20] VITALS: BP 151/81
[2024-10-09] MEDS ORDERED: Aspirin 81 MG TabEC PO ONE (21:35)
[2024-10-09] MEDS ORDERED: Miconazole Nitrate 2% 85 GM PWD TOP SCH (21:50)
[2024-10-10 03:35] VITALS: BP 121/75
[2024-10-10 06:13] LABS: BASOPHILS ABSOLUTE AUTO 0.04 K/mm3 (0.00-0.23); BASOPHILS PERCENT AUTO 1 % (0-2); EOSINOPHILS ABSOLUTE AUTO 0.24 K/mm3 (0.00-0.68); EOSINOPHILS PERCENT AUTO 3 % (0-6); Hematocrit 37.8 % (37.0-53.0); Hemoglobin 12.8 g/dL (13.5-17.5); IMMATURE GRAN ABSOLUTE AUTO 0.02 K/mm3 (0.00-0.10); IMMATURE GRAN PERCENT AUTO 0 % (0-1); LYMPHOCYTES ABSOLUTE AUTO 2.06 K/mm3 (0.84-5.20); LYMPHOCYTES PERCENT AUTO 27 % (21-46); MONOCYTES ABSOLUTE AUTO 0.83 K/mm3 (0.16-1.47); MONOCYTES PERCENT AUTO 11 % (4-13); Mean Corpuscular HGB 32.6 pg (26.0-34.0); Mean Corpuscular HGB Conc 33.9 g/dL (31.5-36.5); Mean Corpuscular Volume 96 fL (80-100); Mean Platelet Volume 10.1 fL (9.1-12.4); NEUTROPHILS ABSOLUTE AUTO 4.37 K/mm3 (1.96-9.15); NEUTROPHILS PERCENT AUTO 58 % (41-73); Platelet Count 129 K/mm3 (150-400); RDW Coefficient Variation 13.1 % (11.7-14.2); Red Blood Cell Count 3.93 M/mm3 (4.30-5.90); White Blood Cell Count 7.56 K/mm3 (4.00-11.30)
[2024-10-10 06:34] LABS: Albumin, Blood 2.5 g/dL (3.4-5.0); Albumin/Globulin Ratio 0.8 (0.8-1.8); Bilirubin, Total 0.9 mg/dL (0.1-1.0); Bun/Creatinine Ratio 15.8 (12.0-20.0); Calcium, Blood 8.1 mg/dL (8.5-10.1); Creatinine, Blood 1.2 mg/dL (0.60-1.20); Globulin, Blood 3.2 g/dL (2.2-4.0); Potassium, Blood 3.8 mmol/L (3.5-5.5); Total Protein, Blood 5.7 g/dL (6.4-8.2)
[2024-10-10 09:03] VITALS: BP 142/78
[2024-10-10 16:12] VITALS: BP 136/95
--- NOTE | 2024-10-10 19:26 | NUR ---
SHIFT SUMMARY PT IS A/OX4. NO ACUTE EVENTS THROUGHOUT THIS SHIFT. PT IS ON RA, SATS >95%. CONTINUING IV ANTIBIOTICS. PT REPORTS DECREASED REDNESS AND IRRITATION TO BLE COMPARED TO YESTERDAY. PT CALLS APPROPRIATELY USING THE CALL LIGHT.
[2024-10-10 20:09] VITALS: BP 169/88
[2024-10-11 01:45] VITALS: BP 144/99
--- NOTE | 2024-10-11 05:11 | NUR ---
SHIFT SUMMARY 84 YR M ADMITTED ON 10/08/24. DNR. NO ACUTE CHANGES THIS SHIFT. PT HAD 2 BM'S THIS SHIFT. HE DOES MUCH BETTER ON THE BEDSIDE COMMODE THAN USING A BED DE ANDA. HE IS A 1 PERSON ASSIST AND IS ABLE TO FOLLOW INSTRUCTIONS WELL. NO C/O PAIN OR DISCOMFORT THIS SHIFT. HE HAS SLEPT FOR MOST OF THE NIGHT AND CALLS APPROPRIATELY FOR ASSISTANCE. BED IN LOW POSITION AND CALL LIGHT IN REACH.
[2024-10-11 06:00] LABS: Hematocrit 40.2 % (37.0-53.0); Hemoglobin 13.7 g/dL (13.5-17.5); Mean Corpuscular HGB 32.5 pg (26.0-34.0); Mean Corpuscular HGB Conc 34.1 g/dL (31.5-36.5); Mean Corpuscular Volume 95 fL (80-100); Mean Platelet Volume 9.5 fL (9.1-12.4); Platelet Count 138 K/mm3 (150-400); RDW Coefficient Variation 13.2 % (11.7-14.2); RDW Standard Deviation 46.1 fL (35.1-46.3); Red Blood Cell Count 4.22 M/mm3 (4.30-5.90); White Blood Cell Count 7.81 K/mm3 (4.00-11.30)
[2024-10-11 06:22] LABS: Bun/Creatinine Ratio 14.2 (12.0-20.0); Calcium, Blood 8.2 mg/dL (8.5-10.1); Creatinine, Blood 1.13 mg/dL (0.60-1.20); Potassium, Blood 4.1 mmol/L (3.5-5.5)
[2024-10-11 07:05] VITALS: BP 157/97
[2024-10-11 16:15] VITALS: BP 126/88
[2024-10-11 19:13] VITALS: BP 150/120
--- NOTE | 2024-10-11 19:18 | NUR ---
SHIFT SUMMARY PT IS A/OX4. 1 PERSON ASSIST TO CHAIR/BSC WITH FWW. ANA IN PLACE FOR URINARY URGENCY AND FREQUENCY. NO ACUTE CHANGES THROUGHOUT THIS SHIFT. CONTINUING IV ANTIBIOTICS. PENDING [facility] AUTHORIZATION. PT CALLS APPROPRIATELY USING THE CALL LIGHT.
[2024-10-12 02:23] VITALS: BP 150/98
--- NOTE | 2024-10-12 03:18 | NUR ---
SHIFT SUMMARY 84 YR M ADMITTED ON 10/08/24. DNR. NO ACUTE CHANGES THIS SHIFT. PT UP IN CHAIR AT BEGIINING OF SHIFT. HE APPEARED TO BE IN A PLEASANT MOOD AND HAD NO C/O PAIN OR DISCOMFORT. HE IS A&O X 4 AND IS ABLE TO COMMUNICATE HIS NEEDS EFFECTIVELY. HE IS PLEASANT AND COOPERATIVE WITH CARE. BED IN LOW POSITION AND CALL LIGHT IN REACH.
[2024-10-12 07:09] VITALS: BP 142/96
[2024-10-12 15:26] VITALS: BP 139/89
--- NOTE | 2024-10-12 17:05 | NUR ---
SHIFT SUMMARY PT AOX4, COOPERATIVE, ABLE TO MAKE NEEDS KNOWN. PT IS 1 PERSON ASSIST, TO RECLINER. WORKED WITH OXIDE FURNACE TENDER TODAY. TOLERATING IV AND PO MEDICATION. PURE WICK ACTIVE AND INTACT. PT HAS BEEN PLEASANT TODAY AND ONLY COMPLAINED OF PAIN ONCE. BED IN LOWEST POSITION, CALL LIGHT WITHIN REACH.
[2024-10-12 20:20] VITALS: BP 170/95
[2024-10-13 03:00] VITALS: BP 168/95
--- NOTE | 2024-10-13 05:46 | NUR ---
SHIFT SUMMARY PT A&OX4 AND ANSWERS QUESTIONS APPROPRIATELY. PT RECEIVED SCHEDULED MEDICATIONS WITH NO ADVERSE REACTIONS. VSS, NO COMPLAINTS OF CP/PRESSURE OR SOB. PT COMPLAINS OF PAIN IN FEET THAT COMES AND GOES. INFORMED. PT SPENT MOST OF SHIFT IN BED WITH EYES CLOSED AND RESPIRATIONS EVEN AND UNLABORED. NO ACUTE EVENTS AT THIS TIME. REPOSITIONED INDEPENDENTLY. FALL PRECAUTIONS IN PLACE AND CALL LIGHT IN REACH.
[2024-10-13 07:11] VITALS: BP 133/87
[2024-10-13] MEDS ORDERED: Gabapentin 100 MG Cap PO SCH ×2 (14:00→21:00)
[2024-10-13 15:38] VITALS: BP 130/85
--- NOTE | 2024-10-13 17:06 | NUR ---
NO CHANGES FOR PT TODAY. PT UP AND OUT OF BED FOR ALL MEALS. PT HAD NO C/O PAIN DURING THE SHIFT ALONG WITH NO SOB CHEST PAIN. PT HAS NO QUESTIONS OR CONCERNS AT THIS TIME.
[2024-10-13 19:14] VITALS: BP 143/98
[2024-10-14 03:24] VITALS: BP 173/102
[2024-10-14 03:26] VITALS: BP 145/85
--- NOTE | 2024-10-14 06:35 | NUR ---
SHIFT SUMMARY PT SLEPT LONG INTERVALS THROUGH THE NIGHT. DENIES PAIN, ABLE TO REPOSITION SELF. MALE PUREWICK IN PLACE DRAINING LARGE AMOUNTS OF YELLOW URINE. LEGS REMAIN REDENNED AND EDEMATOUS, ELEVATED ON PILLOWS. IV ANTIBIOTICS PER ORDER. BED IN LOWEST POSITION, CALL LIGHT WITHIN REACH, SIDERAILS UP X2.
[2024-10-14 07:25] VITALS: BP 152/95
[2024-10-14] MEDS ORDERED: Cyanocobalamin 1000 MCG/ML 1ML Vial IM SCH (12:00)
[2024-10-14 15:53] VITALS: BP 127/85
[2024-10-14 19:32] VITALS: BP 140/85
[2024-10-15 05:51] VITALS: BP 148/93
[2024-10-15 07:54] VITALS: BP 146/92
[2024-10-15] MEDS ORDERED: B-121000 MC3 PO (10:29)
[2024-10-15] MEDS ORDERED: GABA100 PO (10:30)
[2024-10-15] MEDS ORDERED: MICONAZOLE NITR85 GM TOP (10:31)
--- NOTE | 2024-10-15 10:45 | NUR ---
REQUEST TO COMPLETE POLST. REVIEWED CHART, POLST ON FILE. PRINTED AND PROVIDED TO BEDSIDE RN FOR TRANSPORT.
--- NOTE | 2024-10-15 11:55 | NUR ---
DC SUMMARY PT DC TO [facility] THIS SHIFT DC INSTRUCTION GONE OVER WITH PT WHOM STATED UNDERSTANDING. REPORT CALLED AND GAVE TO COREY GREEN AT [facility]. PT LEFT BY TRANSPORTATION SERVICES VIA WHEELCHAIR.
== END 2024-10-15 11:55 | DRG 872 ==
LOC: ER 17:47 → ERHOLD 19:36 → MEDS 19:36
PROVIDERS: Emergency Medicine; ADMIT Internal Medicine
DX: A41.9 Sepsis, unspecified organism (principal); L03.115 Cellulitis of right lower limb; L03.116 Cellulitis of left lower limb; I87.8 Other specified disorders of veins; Z66 Do not resuscitate; I10 Essential (primary) hypertension; Z60.2 Problems related to living alone; R20.2 Paresthesia of skin; Z87.81 Personal history of (healed) traumatic fracture; Z96.659 Presence of unspecified artificial knee joint; Z98.890 Other specified postprocedural states; Z87.891 Personal history of nicotine dependence; Z79.82 Long term (current) use of aspirin; Z86.19 Personal history of other infectious and parasitic diseases
CPT/HCPCS: 36415; 71045; 80048; 80053; 81001; 82607; 83605; 83880; 85025; 85027; 87040; 93005; 93010; 96374; 97110; 97112; 97116; 97161; 97530; 99285-25; A9270; J0690; J1650; J3420; J7050

== ENCOUNTER 2025-05-01 10:38 | Emergency (ER) | payer OTHER ==
[~2025-05-01] VITALS: Ht 170.2 cm; Wt 101.6 kg
[~2025-05-01 10:38] MED LIST changes: +B-121000 MC3 PO; +GABA100 PO; +MICONAZOLE NITR85 GM TOP
[2025-05-01 11:09] LABS: BASOPHILS ABSOLUTE AUTO 0.02 K/mm3 (0.00-0.23); BASOPHILS PERCENT AUTO 0 % (0-2); EOSINOPHILS ABSOLUTE AUTO 0.00 K/mm3 (0.00-0.68); EOSINOPHILS PERCENT AUTO 0 % (0-6); Hematocrit 35.6 % (37.0-53.0); Hemoglobin 12.1 g/dL (13.5-17.5); IMMATURE GRAN ABSOLUTE AUTO 0.03 K/mm3 (0.00-0.10); IMMATURE GRAN PERCENT AUTO 0 % (0-1); LYMPHOCYTES ABSOLUTE AUTO 1.34 K/mm3 (0.84-5.20); LYMPHOCYTES PERCENT AUTO 12 % (21-46); MONOCYTES ABSOLUTE AUTO 0.99 K/mm3 (0.16-1.47); MONOCYTES PERCENT AUTO 9 % (4-13); Mean Corpuscular HGB Conc 34.0 g/dL (31.5-36.5); Mean Corpuscular Volume 94 fL (80-100); NEUTROPHILS ABSOLUTE AUTO 8.90 K/mm3 (1.96-9.15); NEUTROPHILS PERCENT AUTO 79 % (41-73); NRBC ABSOLUTE 0.00 K/mm3 (0.00-0.02); NRBC Auto 0.0 /100 WBC (0.0-0.2); Platelet Count 104 K/mm3 (150-400); RDW Coefficient Variation 14.4 % (11.7-14.2); RDW Standard Deviation 50.2 fL (35.1-46.3)
[2025-05-01 11:42] LABS: Alanine Aminotransfer (ALT/SGP 16.0 U/L (12-78); Albumin, Blood 3.0 g/dL (3.4-5.0); Albumin/Globulin Ratio 0.6 (0.8-1.8); Anion Gap 9.0 mmol/L (3-11); Aspartate Aminotrans (AST/SGOT 20.0 U/L (12-37); Bilirubin, Total 1.4 mg/dL (0.1-1.0); Blood Urea Nitrogen 30.0 mg/dL (8-24); CO2, Blood 26.0 mmol/L (21-32); Calcium, Blood 9.1 mg/dL (8.5-10.1); Chloride, Blood 107.0 mmol/L (98-108); Creatinine, Blood 2.17 mg/dL (0.60-1.20); Globulin, Blood 5.3 g/dL (2.2-4.0); Glucose, Blood 125.0 mg/dL (70-99); Potassium, Blood 3.7 mmol/L (3.5-5.5); Sodium, Blood 138.0 mmol/L (136-145); Total Protein, Blood 8.3 g/dL (6.4-8.2)
[2025-05-01 16:10] LABS: Source, Urine Clean Catch
[2025-05-01 16:12] LABS: Bilirubin, Urine Neg (Neg); Color, Urine Yellow (P-Yellow); Glucose Qualitative, Urine Neg (Neg); Ketones, Urine Neg (Neg); Leukocyte Esterase, Urine Neg (Neg); Protein, Urine Neg (Neg); Specific Gravity, Urine 1.005 (1.003-1.022); Urobilinogen, Urine NORM (Normal)
[2025-05-01 16:20] LABS: White Blood Cells, Urine 0-2 /hpf (0-5)
[2025-05-01] MEDS ORDERED: GABA300 PO (16:39)
[2025-05-01] MEDS ORDERED: ONDA4ODT MM (16:39)
[2025-05-01 18:00] VITALS: BP 165/98
== END 2025-05-01 18:33 | disposition home or self-care (01) ==
LOC: ER 10:38
PROVIDERS: Physician Assistant
DX: G62.9 Polyneuropathy, unspecified (principal); F17.220 Nicotine dependence, chewing tobacco, uncomplicated; Z79.82 Long term (current) use of aspirin; Z79.899 Other long term (current) drug therapy
CPT/HCPCS: 80053; 81001; 83605; 83690; 85025; A9270

== ENCOUNTER → 2025-05-19 | Outpatient (CLI) | payer OTHER ==
[~2025-05-19] MED LIST changes: +GABA300 PO; +ONDA4ODT MM
[2025-05-19 15:32] LABS: Bilirubin, Urine Neg (Neg); Glucose Qualitative, Urine Neg (Neg); Ketones, Urine Neg (Neg); Leukocyte Esterase, Urine Neg (Neg); Protein, Urine 1+ (Neg); Specific Gravity, Urine 1.010 (1.003-1.022); Urobilinogen, Urine NORM (Normal)
[2025-05-19 15:41] LABS: Color, Urine Pale Yellow (P-Yellow)
[2025-05-19 15:43] LABS: Red Blood Cells, Urine 0-2 /hpf (0-2); White Blood Cells, Urine 0-2 /hpf (0-5)
== END ==
LOC: LAB 13:53 → LAB SHORT 13:53
PROVIDERS: Registered Nurse
DX: N39.0 Urinary tract infection, site not specified (principal); R53.0 Neoplastic (malignant) related fatigue
CPT/HCPCS: 81001

== ENCOUNTER 2025-05-20 12:10 | Inpatient (IN) | payer OTHER ==
[~2025-05-20] VITALS: Ht 172.7 cm; Wt 98.7 kg
[2025-05-20 12:50] LABS: Source, Urine Straight Cath
[2025-05-20 12:53] LABS: BASOPHILS ABSOLUTE AUTO 0.04 K/mm3 (0.00-0.23); BASOPHILS PERCENT AUTO 0 % (0-2); EOSINOPHILS ABSOLUTE AUTO 0.02 K/mm3 (0.00-0.68); EOSINOPHILS PERCENT AUTO 0 % (0-6); Hematocrit 33.2 % (37.0-53.0); Hemoglobin 11.2 g/dL (13.5-17.5); IMMATURE GRAN ABSOLUTE AUTO 0.03 K/mm3 (0.00-0.10); IMMATURE GRAN PERCENT AUTO 0 % (0-1); LYMPHOCYTES ABSOLUTE AUTO 2.06 K/mm3 (0.84-5.20); LYMPHOCYTES PERCENT AUTO 20 % (21-46); MONOCYTES ABSOLUTE AUTO 0.99 K/mm3 (0.16-1.47); MONOCYTES PERCENT AUTO 10 % (4-13); Mean Corpuscular HGB Conc 33.7 g/dL (31.5-36.5); Mean Corpuscular Volume 95 fL (80-100); NEUTROPHILS ABSOLUTE AUTO 7.01 K/mm3 (1.96-9.15); NEUTROPHILS PERCENT AUTO 69 % (41-73); NRBC ABSOLUTE 0.00 K/mm3 (0.00-0.02); NRBC Auto 0.0 /100 WBC (0.0-0.2); Platelet Count 144 K/mm3 (150-400); RDW Coefficient Variation 14.0 % (11.7-14.2); RDW Standard Deviation 49.1 fL (35.1-46.3)
[2025-05-20 12:55] LABS: Bilirubin, Urine Neg (Neg); Color, Urine Yellow (P-Yellow); Glucose Qualitative, Urine Neg (Neg); Ketones, Urine Neg (Neg); Leukocyte Esterase, Urine 3+ (Neg); Protein, Urine 3+ (Neg); Specific Gravity, Urine 1.010 (1.003-1.022); Urobilinogen, Urine NORM (Normal)
[2025-05-20 13:02] LABS: White Blood Cells, Urine 50-100 /hpf (0-5)
[2025-05-20 13:03] LABS: Red Blood Cells, Urine 25-50 /hpf (0-2)
[2025-05-20 13:16] LABS: Alanine Aminotransfer (ALT/SGP 21.0 U/L (12-78); Albumin, Blood 2.9 g/dL (3.4-5.0); Albumin/Globulin Ratio 0.6 (0.8-1.8); Anion Gap 11.0 mmol/L (3-11); Aspartate Aminotrans (AST/SGOT 28.0 U/L (12-37); Bilirubin, Total 0.8 mg/dL (0.1-1.0); Blood Urea Nitrogen 78.0 mg/dL (8-24); CO2, Blood 24.0 mmol/L (21-32); Calcium, Blood 8.8 mg/dL (8.5-10.1); Chloride, Blood 106.0 mmol/L (98-108); Creatinine, Blood 4.83 mg/dL (0.60-1.20); Globulin, Blood 5.1 g/dL (2.2-4.0); Glucose, Blood 112.0 mg/dL (70-99); Potassium, Blood 4.8 mmol/L (3.5-5.5); Sodium, Blood 136.0 mmol/L (136-145); Total Protein, Blood 8.0 g/dL (6.4-8.2)
[2025-05-20] MEDS ORDERED: NS 1,000 ML IV SCH ×2 (14:05→15:25)
[2025-05-20] MEDS ORDERED: CefTRIAXone Sodium 1,000 MG in NS 100 ML IV ONE (14:05)
[2025-05-20] MEDS ORDERED: FLU VACC TS2025(65UP)/MF59C/PF 45 MCG/0.5 ML SYRINGE IM SCH (15:25)
[2025-05-20] MEDS ORDERED: Ondansetron HCl 2 MG / ML 2ML Vial IV PRN (15:25)
[2025-05-20 16:10] LABS: Prostate Specific Antigen 1.130 ng/mL (0.000-4.000)
[2025-05-20 16:25] VITALS: BP 152/99
[2025-05-20] MEDS ORDERED: Albumin (Human) 25gm/100ml 100 ML IV SCH (17:00)
[2025-05-20] MEDS ORDERED: NS 250 ML IV PRN (19:55)
[2025-05-20 20:47] VITALS: BP 126/99
[2025-05-20] MEDS ORDERED: Lactobacil 2-S.Thermo-Bifido 1 1 Cap PO SCH (21:00)
[2025-05-21 00:38] VITALS: BP 130/93
[2025-05-21 05:02] VITALS: BP 115/75
[2025-05-21 05:58] LABS: BASOPHILS ABSOLUTE AUTO 0.02 K/mm3 (0.00-0.23); BASOPHILS PERCENT AUTO 0 % (0-2); EOSINOPHILS ABSOLUTE AUTO 0.03 K/mm3 (0.00-0.68); EOSINOPHILS PERCENT AUTO 0 % (0-6); Hematocrit 32.4 % (37.0-53.0); Hemoglobin 10.8 g/dL (13.5-17.5); IMMATURE GRAN ABSOLUTE AUTO 0.03 K/mm3 (0.00-0.10); IMMATURE GRAN PERCENT AUTO 0 % (0-1); LYMPHOCYTES ABSOLUTE AUTO 1.89 K/mm3 (0.84-5.20); LYMPHOCYTES PERCENT AUTO 19 % (21-46); MONOCYTES ABSOLUTE AUTO 0.96 K/mm3 (0.16-1.47); MONOCYTES PERCENT AUTO 10 % (4-13); Mean Corpuscular HGB Conc 33.3 g/dL (31.5-36.5); Mean Corpuscular Volume 95 fL (80-100); NEUTROPHILS ABSOLUTE AUTO 6.88 K/mm3 (1.96-9.15); NEUTROPHILS PERCENT AUTO 70 % (41-73); NRBC ABSOLUTE 0.00 K/mm3 (0.00-0.02); NRBC Auto 0.0 /100 WBC (0.0-0.2); Platelet Count 135 K/mm3 (150-400); RDW Coefficient Variation 14.1 % (11.7-14.2); RDW Standard Deviation 48.5 fL (35.1-46.3)
[2025-05-21 06:18] LABS: Alanine Aminotransfer (ALT/SGP 17.0 U/L (12-78); Albumin, Blood 3.0 g/dL (3.4-5.0); Albumin/Globulin Ratio 0.7 (0.8-1.8); Anion Gap 11.0 mmol/L (3-11); Aspartate Aminotrans (AST/SGOT 24.0 U/L (12-37); Bilirubin, Total 1.0 mg/dL (0.1-1.0); Blood Urea Nitrogen 77.0 mg/dL (8-24); CO2, Blood 22.0 mmol/L (21-32); Calcium, Blood 8.9 mg/dL (8.5-10.1); Chloride, Blood 106.0 mmol/L (98-108); Creatinine, Blood 4.83 mg/dL (0.60-1.20); Globulin, Blood 4.6 g/dL (2.2-4.0); Glucose, Blood 108.0 mg/dL (70-99); Potassium, Blood 4.2 mmol/L (3.5-5.5); Sodium, Blood 135.0 mmol/L (136-145); Total Protein, Blood 7.6 g/dL (6.4-8.2)
--- NOTE | 2025-05-21 07:41 | NUR ---
SHIFT SUMMARY AT START OF SHIFT, PT LYING IN BED. PT PLEASANT AND COOPERATIVE WITH CARE. HE SLEPT THROUGH MOST OF SHIFT, WAKING FOR MEDS AND LABS.
[2025-05-21 08:18] VITALS: BP 126/79
[2025-05-21] MEDS ORDERED: Darbepoetin (Pharmacy Consult) SC SCH (08:35)
[2025-05-21] MEDS ORDERED: Enoxaparin 30 MG/0.3 ML SYR SC SCH (09:00)
[2025-05-21 10:54] VITALS: BP 109/72
[2025-05-21] MEDS ORDERED: CefTRIAXone Sodium 1,000 MG in NS 100 ML IV SCH (12:00)
[2025-05-21 17:46] VITALS: BP 136/82
[2025-05-21 20:19] VITALS: BP 126/74
[2025-05-22 00:29] VITALS: BP 125/82
[2025-05-22 04:34] LABS: BASOPHILS ABSOLUTE AUTO 0.02 K/mm3 (0.00-0.23); BASOPHILS PERCENT AUTO 0 % (0-2); EOSINOPHILS ABSOLUTE AUTO 0.19 K/mm3 (0.00-0.68); EOSINOPHILS PERCENT AUTO 2 % (0-6); Hematocrit 30.2 % (37.0-53.0); Hemoglobin 10.3 g/dL (13.5-17.5); IMMATURE GRAN ABSOLUTE AUTO 0.02 K/mm3 (0.00-0.10); IMMATURE GRAN PERCENT AUTO 0 % (0-1); LYMPHOCYTES ABSOLUTE AUTO 2.08 K/mm3 (0.84-5.20); LYMPHOCYTES PERCENT AUTO 25 % (21-46); MONOCYTES ABSOLUTE AUTO 0.71 K/mm3 (0.16-1.47); MONOCYTES PERCENT AUTO 9 % (4-13); Mean Corpuscular HGB Conc 34.1 g/dL (31.5-36.5); Mean Corpuscular Volume 93 fL (80-100); NEUTROPHILS ABSOLUTE AUTO 5.16 K/mm3 (1.96-9.15); NEUTROPHILS PERCENT AUTO 63 % (41-73); NRBC ABSOLUTE 0.00 K/mm3 (0.00-0.02); NRBC Auto 0.0 /100 WBC (0.0-0.2); Platelet Count 126 K/mm3 (150-400); RDW Coefficient Variation 14.2 % (11.7-14.2); RDW Standard Deviation 48.2 fL (35.1-46.3)
[2025-05-22 04:56] LABS: Albumin, Blood 3.3 g/dL (3.4-5.0); Anion Gap 11 mmol/L (3-11); Blood Urea Nitrogen 79 mg/dL (8-24); CO2, Blood 22 mmol/L (21-32); Calcium, Blood 8.8 mg/dL (8.5-10.1); Chloride, Blood 107 mmol/L (98-108); Creatinine, Blood 4.51 mg/dL (0.60-1.20); Glucose, Blood 104 mg/dL (70-99); Magnesium, Blood 1.8 mg/dL (1.6-2.4); Phosphorus, Blood 6.1 mg/dL (2.5-4.9); Potassium, Blood 3.3 mmol/L (3.5-5.5); Sodium, Blood 137 mmol/L (136-145)
[2025-05-22 05:34] VITALS: BP 125/77
--- NOTE | 2025-05-22 06:45 | NUR ---
SHIFT SUMMARY: Pt is admitted for acute renal failure and is a DNR. is alert and able to make needs known. ADLs have been 1-2p depending on activity but did not get out of bed. Denies pain or discomfort when asked. Juan José noted sinus in the 90s with a bundle branch and no events. Folly is patent and draining clear hellen urine.
[2025-05-22 08:32] VITALS: BP 133/83
[2025-05-22 14:25] VITALS: BP 151/81
[2025-05-22 15:45] LABS: Protein, Urine Quantitative 38.5 mg/dL (0.0-11.9)
[2025-05-22 15:47] VITALS: BP 115/82
[2025-05-22] MEDS ORDERED: Darbepoetin Alfa In Albumn Sol 40 MCG/0.4 ML SC SCH (16:00)
--- NOTE | 2025-05-22 18:22 | NUR ---
END OF SHIFT PATIENT A&OX3-4 TODAY. ABLE TO MAKE NEEDS KNOWN. BEDREST DUE TO BILAT WRAPPING ON FEET AND LEGS, ORTHO TO CONSULT. BLE EDEMA, PATIENT HAVING PAIN MAINLY IN LEFT LEG/FOOT. RIGHT ANKLE FX, CAST AND ORALIA WRAP IN PLACE. LIND TO BE LEFT PER SARAH. UROLOGY CONSULT ORDERED. FLUID RESTRICTION IN PLACE. SAT AT EDGE OF BED WITH PHYSICAL THERAPY TODAY. NO OTHER CONCERNS FOR THIS SHIFT.
[2025-05-22 19:44] VITALS: BP 125/79
[2025-05-23 00:38] VITALS: BP 134/85
[2025-05-23 03:27] VITALS: BP 138/86
[2025-05-23 04:54] LABS: Hematocrit 31.7 % (37.0-53.0); Hemoglobin 10.8 g/dL (13.5-17.5)
[2025-05-23 05:15] LABS: Albumin, Blood 3.0 g/dL (3.4-5.0); Anion Gap 12 mmol/L (3-11); Blood Urea Nitrogen 69 mg/dL (8-24); CO2, Blood 21 mmol/L (21-32); Calcium, Blood 8.4 mg/dL (8.5-10.1); Chloride, Blood 106 mmol/L (98-108); Creatinine, Blood 3.69 mg/dL (0.60-1.20); Glucose, Blood 112 mg/dL (70-99); Magnesium, Blood 1.6 mg/dL (1.6-2.4); PSA, %Free 27.2 %; PSA, Free 1.700 ng/mL; Phosphorus, Blood 5.1 mg/dL (2.5-4.9); Potassium, Blood 3.3 mmol/L (3.5-5.5); Prostate Specific Antigen 6.240 ng/mL (0.000-4.000); Sodium, Blood 136 mmol/L (136-145)
[2025-05-23 07:34] VITALS: BP 137/89
--- NOTE | 2025-05-23 07:39 | NUR ---
SHIFT SUMMARY PATIENT A&OX4, ABLE TO MAKE NEEDS KNOWN, NO POINTS OF DISTRESS NOTED, ULTRASOUND RAN TEST, BED RAILS UPX3, CALL LIGHT WITHIN REACH. PATIENT HAS SLEPTY FOR MOST OF THE NIGHT.
[2025-05-23] MEDS ORDERED: Colchicine 0.6 MG TAB PO ONE (10:00)
[2025-05-23 11:26] VITALS: BP 115/88
[2025-05-23 15:36] VITALS: BP 126/82
--- NOTE | 2025-05-23 18:06 | NUR ---
SHIFT SUMMARY PT A&OX3-4 FORGETFUL AT TIMES, SR IN 80 WITH BBB ON TELE, RA, VSS. LIND IN PLACE DRAINING CLEAR YELLOW URINE. PT DENIES PAIN WHEN NOT MOVING. WORKED WITH PT AND OT TODAY, SAT ON EDGE OF BED. 1 benchee. BM THIS SHIFT. NO ACUTE CHANGES THIS SHIFT, PT ABLE TO MAKE NEEDS KNOWN, CALL LIGHT IN REACH.
[2025-05-23 20:36] VITALS: BP 131/97
[2025-05-24 00:18] VITALS: BP 114/77
[2025-05-24] MEDS ORDERED: Miconazole Nitrate 2% 85 GM PWD TOP PRN (02:25)
[2025-05-24 03:35] VITALS: BP 119/73
--- NOTE | 2025-05-24 04:23 | NUR ---
HEAD OF MARKETING SUMMARY VSS. ALERT AND ORIENTED. SPEAKS WITH HIGH PITCHED VOICE. ON BEDREST DUE TO BLE ISSUES (LEFT SIDE FX AND RIGHT SIDE SWELLING, BOTH SIDES WRAPPED. FX SPLINTED.) REPOSITIONED AND CLEANED NEEDED. NOTE STAGE 2 BREAK DOWN ON BUTTOCK - SEE PICS FOR DETAILS. HAS BEEN RESTING QUIETLY WITH OCCASIONAL INTERRUPTIONS THROUGHOUT NOCT. CALL LIGHT IN REACH, RAILS UP X 2 AND BED IN LOW POSITION FOR SAFETY.
[2025-05-24 05:27] LABS: Hematocrit 34.6 % (37.0-53.0); Hemoglobin 11.7 g/dL (13.5-17.5)
[2025-05-24 05:53] LABS: Albumin, Blood 3.1 g/dL (3.4-5.0); Anion Gap 13 mmol/L (3-11); Blood Urea Nitrogen 66 mg/dL (8-24); CO2, Blood 22 mmol/L (21-32); Calcium, Blood 8.8 mg/dL (8.5-10.1); Chloride, Blood 104 mmol/L (98-108); Creatinine, Blood 2.96 mg/dL (0.60-1.20); Glucose, Blood 111 mg/dL (70-99); Magnesium, Blood 1.7 mg/dL (1.6-2.4); Phosphorus, Blood 4.6 mg/dL (2.5-4.9); Potassium, Blood 3.4 mmol/L (3.5-5.5); Sodium, Blood 136 mmol/L (136-145)
[2025-05-24 08:23] VITALS: BP 130/89
[2025-05-24 10:55] VITALS: BP 114/69
[2025-05-24 14:19] VITALS: BP 124/77
--- NOTE | 2025-05-24 15:58 | NUR ---
SHIFT SUMMARY- PT HAS HAD NO ACUTE CHANGE T/O THE SHIFT. TELE DC'D IV DC'D, NEW ORDER FOR NO IV ACCESS NEEDED. PT WAS ACCEPTED TO UV[facility]. DR ABURTO PLANS TO MONITOR FOR ONE MORE DAY THEN DC TO [facility] TOM[facility]. PT IN BED, CALL LIGHT IN REACH LIND PATENT AND DRAINING TO GRAVITY, NO S&S OF DISTRESS NOTED. WILL PASS ON TO NIGHT RN IN REPORT.
[2025-05-24 19:30] VITALS: BP 112/69
[2025-05-25 04:52] VITALS: BP 108/78
[2025-05-25 05:03] LABS: Hematocrit 33.5 % (37.0-53.0); Hemoglobin 11.1 g/dL (13.5-17.5)
[2025-05-25 05:29] LABS: Albumin, Blood 3.0 g/dL (3.4-5.0); Anion Gap 10 mmol/L (3-11); Blood Urea Nitrogen 57 mg/dL (8-24); CO2, Blood 24 mmol/L (21-32); Calcium, Blood 8.8 mg/dL (8.5-10.1); Chloride, Blood 109 mmol/L (98-108); Creatinine, Blood 2.35 mg/dL (0.60-1.20); Glucose, Blood 101 mg/dL (70-99); Magnesium, Blood 1.7 mg/dL (1.6-2.4); Phosphorus, Blood 4.3 mg/dL (2.5-4.9); Potassium, Blood 3.6 mmol/L (3.5-5.5); Sodium, Blood 139 mmol/L (136-145)
[2025-05-25 07:05] VITALS: BP 125/79
--- NOTE | 2025-05-25 07:32 | NUR ---
SHIFT SUMMARY AT START OF SHIFT, PT RESTING COMFORTABLY IN BED. UPON 2200 ROUNDING, PT SLEEPING SOUNDLY IN HIS BED. PERFORMED CATH CARE. PT TOLERATED CARE WELL W/O COMPLAINTS. HE HAS BEEN PLEASANT AND COOPERATIVE WITH CARE.
[2025-05-25 09:52] VITALS: BP 105/86
[2025-05-25] MEDS ORDERED: CEPH500 PO (10:34)
[2025-05-25] MEDS ORDERED: Acetaminophen650 M1 PO (10:34)
[2025-05-25] MEDS ORDERED: METO25 PO (10:35)
[2025-05-25] MEDS ORDERED: VISBIOME 112.51 EACH PO (10:35)
[2025-05-25] MEDS ORDERED: PRED20 PO (10:35)
--- NOTE | 2025-05-25 11:48 | NUR ---
DISCHARGE NOTE- PT DISCHARGED TO R. CALLED TO PROVIDE TELEPHONE REPORT. REPORT GIVEN TO SHEBA AT [facility]. NO FURTHER QUESTIONS AT THE TIME OF REPORT. PT WAS TAKEN VIA WC TRANSPORT TO [facility], TRANSFER TO DONE WITH THE LIFT. NO S&S OF REPORT NOTED AT THE TIME OF DISCHARGE.
== END 2025-05-25 11:19 | DRG 683 ==
LOC: ER 12:10 → MEDS 15:48 → ENPENDDIS 05-25 09:45 → MEDS 05-25 11:19
PROVIDERS: Internal Medicine Nephrology; Student in an Organized Health Care Education/Training Program; ADMIT Internal Medicine
PROC: 30233J1 Transfusion of Nonautologous Serum Albumin into Peripheral Vein, Percutaneous Approach (ICD-10-PCS; 2025-05-20)
PROC: 3E03329 Introduction of Other Anti-infective into Peripheral Vein, Percutaneous Approach (ICD-10-PCS; principal; 2025-05-21)
PROC: 0T9B70Z Drainage of Bladder with Drainage Device, Via Natural or Artificial Opening (ICD-10-PCS; 2025-05-21)
DX: N17.9 Acute kidney failure, unspecified (principal); E87.1 Hypo-osmolality and hyponatremia; I13.0 Hypertensive heart and chronic kidney disease with heart failure and stage 1 through stage 4 chronic kidney disease, or unspecified chronic kidney disease; I50.32 Chronic diastolic (congestive) heart failure; E87.20 Acidosis, unspecified; S82.64XA Nondisplaced fracture of lateral malleolus of right fibula, initial encounter for closed fracture; Z66 Do not resuscitate; N18.30 Chronic kidney disease, stage 3 unspecified; Z87.891 Personal history of nicotine dependence; D63.1 Anemia in chronic kidney disease; M10.9 Gout, unspecified; N13.6 Pyonephrosis; E87.6 Hypokalemia; E83.39 Other disorders of phosphorus metabolism; R29.6 Repeated falls; E88.09 Other disorders of plasma-protein metabolism, not elsewhere classified; Z87.81 Personal history of (healed) traumatic fracture; Z79.82 Long term (current) use of aspirin; Z79.899 Other long term (current) drug therapy; Z98.890 Other specified postprocedural states; W18.30XA Fall on same level, unspecified, initial encounter
CPT/HCPCS: 27788; 36415; 51701; 71045; 73600; 73610; 73620; 73630; 76770; 80053; 80069; 81001; 82550; 82570; 83735; 84153; 84154; 84156; 84300; 84443; 84550; 85014; 85018; 85025; 87077; 87086; 87186; 93005; 93010; 93970; 96365-59; 97110; 97161; 97165; 97530; 99285-25; A6590; A9270; G0103; J0696; J0881; J1650; J7030; J7050; J7512; P9047